=== PATIENT | male | born 1975 | race Caucasian/White ===

== ENCOUNTER 2016-09-13 13:27 | Emergency (ER) | payer MEDICARE, OTHER ==
[2016-09-13 13:34] VITALS: RESP 20
--- NOTE | 2016-09-13 14:13 | ED ---
General Adult HPI - General Chief complaint: Extremity Injury, Upper Stated complaint: Falll/Arm Pain Time Seen by Provider: 09/13/16 13:39 Source: patient, RN notes reviewed Mode of arrival: ambulatory Limitations: no limitations - History of Present Illness Initial comments: This is a 40-year-old male presents today with right arm pain. Patient states he tripped in his bathroom and hit his arm on the bathroom counter today. Patient denies head injury or loss of consciousness or dizziness. Patient states he now has pain to the ulnar aspect of the right forearm and also to the ulnar aspect of the right elbow. Patient denies any numbness/weakness or tingling to the right hand. Patient denies any wrist or hand pain. Patient states he has some mild tingling over the right forearm in the area of increased pain. Patient denies any recent fever, chills, shortness breath, chest pain, abdominal pain, nausea/vomiting/diarrhea, back pain, hematuria, headache, or visual changes, or any other complaints. - Related Data Home Medications Medication Instructions Recorded Confirmed Aspirin 81 mg PO DAILY 10/15/14 09/13/16 Insulin Glargine [Lantus] 120 unit SQ BID 10/15/14 09/13/16 Insulin Lispro [humaLOG] 10 units PO TID 10/15/14 09/13/16 Ziprasidone [Geodon] 60 mg PO DAILY 10/15/14 09/13/16 Zolpidem [Ambien] 10 mg PO HS 10/15/14 09/13/16 metFORMIN HCL [Glucophage] 1,000 mg PO BID 10/15/14 09/13/16 Atorvastatin [Lipitor] 20 mg PO DAILY 12/16/14 09/13/16 Carvedilol Phosphate [Coreg Cr] 20 mg PO DAILY 12/16/14 09/13/16 Furosemide [Lasix] 40 mg PO DAILY 12/16/14 09/13/16 Omeprazole [PriLOSEC] 20 mg PO DAILY 12/16/14 09/13/16 Atorvastatin [Lipitor] 20 mg PO DAILY 09/13/16 09/13/16 Exenatide [Byetta] 5 mcg SQ DAILY 09/13/16 09/13/16 Previous Rx's Medication Instructions Recorded Ibuprofen [Motrin] 600 mg PO Q8HR PRN #30 tab 10/15/14 Cyclobenzaprine [Flexeril] 10 mg PO TID #14 tab 12/16/14 Hydrocodone/Acetaminophen [[place] 1 each PO Q6HR PRN #20 tab 12/16/14 5-325] Ibuprofen [Motrin] 800 mg PO Q6HR PRN #20 tab 12/16/14 Nitroglycerin Sl Tabs [Nitrostat] 0.4 mg SUBLINGUAL Q5M PRN #25 tab 12/30/14 Allergies Allergy/AdvReac Type Severity Reaction Status Date / Time tuberculin, purified protein AdvReac Swelling Verified 09/13/16 13:34 deriva [tuberculin,purif.prot.deriv.] Review of Systems ROS Statement: Those systems with pertinent positive or pertinent negative responses have been documented in the HPI. ROS Other: All systems not noted in ROS Statement are negative. Past Medical History Past Medical History: Chest Pain / Angina, Diabetes Mellitus, GERD/Reflux, Hyperlipidemia, Hypertension, Myocardial Infarction ([place]) Last Myocardial Infarction Date:: 08/2013 History of Any Multi-Drug Resistant Organisms: None Reported Past Surgical History: Cholecystectomy Additional Past Surgical History / Comment(s): clean cardiac cath - approx 10 yrs ago Past Anesthesia/Blood Transfusion Reactions: No Reported Reaction Past Psychological History: Depression, PTSD, Schizophrenia Smoking Status: Current every day smoker Past Alcohol Use History: None Reported Past Drug Use History: Methamphetamine, Opiates - Past Family History Father Additional Family Medical History / Comment(s): adopted - no none hx General Exam - General Exam Comments Initial Comments: General: The patient is awake and alert, in no distress, and does not appear acutely ill. Neck: The neck is supple, there is no tenderness or JVD. Cardiovascular: There is a regular rate and rhythm. No murmur, rub or gallop is appreciated. Respiratory: Lungs are clear to auscultation, respirations are non-labored, breath sounds are equal. No wheezes, stridor, rales, or rhonchi. Musculoskeletal: There is tenderness to palpation over the ulnar aspect of the mid shaft right forearm, there is tenderness over the ulnar aspect of the right elbow. There is no tenderness over the radial aspect of the right forearm or to the right wrist or right hand. Full range of motion, strength 5/5 and Sensation intact. Radial pulses 2+ bilaterally, normal capillary refill at less than 2 seconds. Neurological: A&O x 3. CN II-XII intact, There are no obvious motor or sensory deficits. Coordination appears grossly intact. Speech is normal. Skin: Skin is warm and dry and no rashes or lesions are noted. Psychiatric: Normal mood and affect. Limitations: no limitations Course Vital Signs 09/13/16 13:32 Temperature 97.6 F Pulse Rate 94 Respiratory 20 Rate Blood Pressure 149/108 O2 Sat by Pulse 96 Oximetry Medical Decision Making - Medical Decision Making This is a 40-year-old male presents with right arm pain after hitting his arm on his bathroom counter. On physical exam there is tenderness to palpation over the ulnar aspect of the mid shaft right forearm, there is tenderness over the ulnar aspect of the right elbow. There is no tenderness over the radial aspect of the right forearm or to the right wrist or right hand. Full range of motion, strength 5/5 and Sensation intact. Radial pulses 2+ bilaterally, normal capillary refill at less than 2 seconds. X-rays of the right forearm and right elbow were done and reviewed showing: X- ray elbow right, x-ray forearm right colon right elbow and forearm without acute osseous abnormality seen. Reported by Dr. Schreiber. Discussed rest, ice, elevate and use [id number] Tylenol or Motrin as needed for any pain. Discussed return parameters.If symptoms do not improve in the next 7 days repeat x-rays may be needed to rule out occult fracture.Discussed that patient should follow up with PCP in one to 2 days or return to the [facility] for any worsening symptoms or for any further concerns. Patient and who was also present in the room were receptive to this plan and patient will be discharged home. Disposition Clinical Impression: Right arm pain Disposition: HOME SELF-CARE Condition: Good Instructions: Arm Pain (ED) Additional Instructions: Please rest, ice, elevate and use [id number] Tylenol or Motrin as needed for pain. If symptoms do not improve in the next 7 days repeat x-rays may be needed to rule out occult fracture. Please follow-up with family doctor in the next 2 days of symptoms have not improved. Please return to emergency room if the symptoms increase or worsen or for any other concerns. Referrals: Rowena Christiansen MD [Primary Care Provider] - 1-2 days Time of Disposition: 14:35
--- NOTE | 2016-09-13 14:33 | XR ---
EXAMINATION TYPE: 3 views right elbow. 2 views right forearm. DATE OF EXAM: 09/13/2016 2:11 PM COMPARISON: NONE HISTORY: 40-year-old male with pain after trip and fall. FINDINGS: Right elbow: No acute fracture, subluxation, or dislocation. No significant elbow joint effusion. Right forearm: No acute fracture identified. Wrist articulation appears grossly intact. IMPRESSION: Right elbow and forearm without acute osseous abnormality seen.
[2016-09-13 14:41] VITALS: BP 131/98; PULSE 86; TEMP 97.8
== END 2016-09-13 14:46 | disposition home or self-care (01) ==
LOC: EC 13:27
DX: M79.601 Pain in right arm (principal); E11.9 Type 2 diabetes mellitus without complications; I10 Essential (primary) hypertension; E78.5 Hyperlipidemia, unspecified; I25.2 Old myocardial infarction; K21.9 Gastro-esophageal reflux disease without esophagitis; F17.200 Nicotine dependence, unspecified, uncomplicated; F20.9 Schizophrenia, unspecified; W01.198A Fall on same level from slipping, tripping and stumbling with subsequent striking against other object, initial encounter; Y92.002 Bathroom of unspecified non-institutional (private) residence as the place of occurrence of the external cause; Z79.899 Other long term (current) drug therapy; Z79.4 Long term (current) use of insulin; Z79.84 Long term (current) use of oral hypoglycemic drugs; Z88.8 Allergy status to other drugs, medicaments and biological substances; Z79.82 Long term (current) use of aspirin
CPT/HCPCS: 99283

== ENCOUNTER 2017-10-05 22:02 | Inpatient (IN) | payer MEDICARE, OTHER ==
--- NOTE | 2017-10-05 23:24 | ED ---
Psych HPI - General Chief Complaint: Psychiatric Symptoms Stated Complaint: mental health Time Seen by Provider: 10/05/17 22:28 Source: patient, family Mode of arrival: ambulatory - History of Present Illness Initial Comments: This patient's a 41-year-old man who presents with complaint that he is having worsening of his auditory hallucinations. The patient states that the hallucinations are telling him to hurt people particularly his . He states that this is been getting worse over the past few months. When he discussed this with his care provider he was recommended to come emergency department for evaluation. Patient is not having any suicidal ideation. He states that he is compliant with his medications but they don't seem to be helping much. Complaint: other -: week(s) Associated Psychiatric Symptoms: racing thoughts, auditory hallucinations Quality: getting worse Improves With: none Worsens With: none - Related Data Home Medications Medication Instructions Recorded Confirmed Aspirin 81 mg PO DAILY 10/15/14 10/05/17 Insulin Glargine [Lantus] 120 unit SQ BID 10/15/14 10/05/17 Insulin Lispro [humaLOG] See Protocol PO ACHS 10/15/14 10/05/17 Ziprasidone [Geodon] 60 mg PO DAILY 10/15/14 10/05/17 metFORMIN HCL [Glucophage] 1,000 mg PO BID 10/15/14 10/05/17 Carvedilol Phosphate [Coreg Cr] 20 mg PO DAILY 12/16/14 10/05/17 Furosemide [Lasix] 40 mg PO DAILY 12/16/14 10/05/17 Omeprazole [PriLOSEC] 20 mg PO DAILY 12/16/14 10/05/17 Atorvastatin [Lipitor] 20 mg PO DAILY 09/13/16 10/05/17 Exenatide [Byetta] 5 mcg SQ BID 09/13/16 10/05/17 Gabapentin [Neurontin] 300 mg PO TID 10/05/17 10/05/17 Ibuprofen [Motrin] 800 mg PO TID PRN 10/05/17 10/05/17 Potassium Chloride [Klor-Con 8] 8 meq PO DAILY 10/05/17 10/05/17 Sillenor 6mg 6 mg PO DAILY 10/05/17 10/05/17 Tamsulosin [Flomax] 0.4 mg PO DAILY 10/05/17 10/05/17 Allergies Allergy/AdvReac Type Severity Reaction Status Date / Time tuberculin, purified protein Allergy Swelling Verified 10/05/17 23:15 deriva [tuberculin,purif.prot.deriv.] Review of Systems ROS Statement: Those systems with pertinent positive or pertinent negative responses have been documented in the HPI. ROS Other: All systems not noted in ROS Statement are negative. Constitutional: Denies: fever Eyes: Denies: vision change Respiratory: Denies: cough, dyspnea Cardiovascular: Denies: chest pain, palpitations, edema, syncope Gastrointestinal: Denies: abdominal pain, nausea, vomiting Genitourinary: Denies: dysuria, hematuria Musculoskeletal: Denies: back pain Skin: Denies: rash Neurological: Denies: headache, weakness, numbness Psychiatric: Reports: auditory hallucinations, homicidal thoughts. Denies: depression, suicidal thoughts Past Medical History Past Medical History: Chest Pain / Angina, Diabetes Mellitus, GERD/Reflux, Hyperlipidemia, Hypertension, Myocardial Infarction ([place]) Last Myocardial Infarction Date:: 08/2013 History of Any Multi-Drug Resistant Organisms: None Reported Past Surgical History: Cholecystectomy Additional Past Surgical History / Comment(s): clean cardiac cath - approx 10 yrs ago Past Anesthesia/Blood Transfusion Reactions: No Reported Reaction Past Psychological History: Depression, PTSD, Schizophrenia Smoking Status: Current every day smoker Past Alcohol Use History: None Reported Past Drug Use History: Methamphetamine, Opiates - Past Family History Father Additional Family Medical History / Comment(s): adopted - no none hx General Exam Limitations: no limitations General appearance: alert, in no apparent distress, obese Head exam: Present: atraumatic, normocephalic Eye exam: Present: normal appearance. Absent: scleral icterus, conjunctival injection ENT exam: Present: normal oropharynx Neck exam: Present: normal inspection, full ROM Respiratory exam: Present: normal lung sounds bilaterally. Absent: respiratory distress, wheezes, rales, rhonchi, stridor Cardiovascular Exam: Present: regular rate, normal rhythm, normal heart sounds. Absent: systolic murmur, diastolic murmur, rubs, gallop GI/Abdominal exam: Present: soft. Absent: distended, tenderness, guarding, rebound, mass Extremities exam: Present: normal inspection, normal capillary refill. Absent: pedal edema, calf tenderness Back exam: Present: normal inspection. Absent: CVA tenderness (R), CVA tenderness (L) Neurological exam: Present: alert Psychiatric exam: Present: homicidal ideation. Absent: depressed, anxious, flat affect, manic, suicidal ideation Skin exam: Present: warm, dry, intact, normal color. Absent: rash Course Vital Signs 10/05/17 10/06/17 22:19 03:00 Temperature 99.8 F H Pulse Rate 100 76 Respiratory 20 18 Rate Blood Pressure 148/98 150/96 O2 Sat by Pulse 96 96 Oximetry Medical Decision Making - Lab Data Result diagrams: 10/06/17 01:25 10/06/17 01:25 Lab Results 10/05/17 10/06/17 10/06/17 Range/Units 23:30 00:51 01:25 WBC (3.8-10.6) k/uL RBC (4.30-5.90) m/uL Hgb (13.0-17.5) gm/dL Hct (39.0-53.0) % MCV (80.0-100.0) fL MCH (25.0-35.0) pg MCHC (31.0-37.0) g/dL RDW (11.5-15.5) % Plt Count (150-450) k/uL Neutrophils % % Lymphocytes % % Monocytes % % Eosinophils % % Basophils % % Neutrophils # (1.3-7.7) k/uL Lymphocytes # (1.0-4.8) k/uL Monocytes # (0-1.0) k/uL Eosinophils # (0-0.7) k/uL Basophils # (0-0.2) k/uL Sodium (137-145) mmol/L Potassium (3.5-5.1) mmol/L Chloride (98-107) mmol/L Carbon Dioxide (22-30) mmol/L Anion Gap mmol/L BUN (9-20) mg/dL Creatinine (0.66-1.25) mg/dL Est GFR (MDRD) Af Amer (>60 ml/min/1.73 sqM) Est GFR (MDRD) Non-Af (>60 ml/min/1.73 sqM) Glucose (74-99) mg/dL POC Glucose (mg/dL) 400 H (75-99) mg/dL POC Glu Pediatric Clinical Dietician ID He Juan Calcium (8.4-10.2) mg/dL Urine Opiates Screen Not Detected (NotDetected) Ur Oxycodone Screen Not Detected (NotDetected) Urine Methadone Screen Not Detected (NotDetected) Ur Propoxyphene Screen Not Detected (NotDetected) Ur Barbiturates Screen Not Detected (NotDetected) U Tricyclic Antidepress Not Detected (NotDetected) Ur Phencyclidine Scrn Not Detected (NotDetected) Ur Amphetamines Screen Not Detected (NotDetected) U Methamphetamines Scrn Not Detected (NotDetected) U Benzodiazepines Scrn Not Detected (NotDetected) Urine Cocaine Screen Not Detected (NotDetected) U Marijuana (THC) Screen Not Detected (NotDetected) Acetone, Qual Negative (Negative) 10/06/17 10/06/17 10/06/17 Range/Units 01:25 01:25 03:16 WBC 7.2 (3.8-10.6) k/uL RBC 5.44 (4.30-5.90) m/uL Hgb 15.6 (13.0-17.5) gm/dL Hct 46.0 (39.0-53.0) % MCV 84.7 (80.0-100.0) fL MCH 28.6 (25.0-35.0) pg MCHC 33.8 (31.0-37.0) g/dL RDW 14.3 (11.5-15.5) % Plt Count 220 (150-450) k/uL Neutrophils % 57 % Lymphocytes % 32 % Monocytes % 7 % Eosinophils % 2 % Basophils % 1 % Neutrophils # 4.1 (1.3-7.7) k/uL Lymphocytes # 2.3 (1.0-4.8) k/uL Monocytes # 0.5 (0-1.0) k/uL Eosinophils # 0.2 (0-0.7) k/uL Basophils # 0.0 (0-0.2) k/uL Sodium 135 L (137-145) mmol/L Potassium 4.5 (3.5-5.1) mmol/L Chloride 100 (98-107) mmol/L Carbon Dioxide 22 (22-30) mmol/L Anion Gap 13 mmol/L BUN 16 (9-20) mg/dL Creatinine 0.90 (0.66-1.25) mg/dL Est GFR (MDRD) Af Amer >60 (>60 ml/min/1.73 sqM) Est GFR (MDRD) Non-Af >60 (>60 ml/min/1.73 sqM) Glucose 406 H (74-99) mg/dL POC Glucose (mg/dL) 290 H (75-99) mg/dL POC Glu Pediatric Clinical Dietician ID He Juan Calcium 9.0 (8.4-10.2) mg/dL Urine Opiates Screen (NotDetected) Ur Oxycodone Screen (NotDetected) Urine Methadone Screen (NotDetected) Ur Propoxyphene Screen (NotDetected) Ur Barbiturates Screen (NotDetected) U Tricyclic Antidepress (NotDetected) Ur Phencyclidine Scrn (NotDetected) Ur Amphetamines Screen (NotDetected) U Methamphetamines Scrn (NotDetected) U Benzodiazepines Scrn (NotDetected) Urine Cocaine Screen (NotDetected) U Marijuana (THC) Screen (NotDetected) Acetone, Qual (Negative) Disposition Clinical Impression: Acute psychosis, Uncontrolled diabetes mellitus Disposition: ADMITTED IP TO THIS HOSP Condition: Fair Referrals: Rowena Christiansen MD [Primary Care Provider] - 1-2 days
[2017-10-05 23:54] LABS: Amphetamine Screen,Urine Not Detected (NotDetected); Barbiturate Screen,Urine Not Detected (NotDetected); Benzodiazepines Screen,Urine Not Detected (NotDetected); Cocaine Screen,Urine Not Detected (NotDetected); Methadone Screen, Urine Not Detected (NotDetected); Opiate Screen,Urine Not Detected (NotDetected); Oxycodone Screen, Urine Not Detected (NotDetected); Phencyclidine Screen,Urine Not Detected (NotDetected); Tricyclic Antidepressant,Urine Not Detected (NotDetected); Urn Cannabinoid Scrn Not Detected (NotDetected)
[2017-10-06 00:53] LABS: Glucose,Whole Blood 400 mg/dL (75-99)
[2017-10-06] MEDS ORDERED: INSULIN REGULAR 100 UNIT/ML VIAL SQ STA (01:15)
[2017-10-06] MEDS ORDERED: SODIUM CHLORIDE 0.9% 2,000 ML IV ONE (01:15)
[2017-10-06] MEDS ORDERED: NALOXONE 0.4 MG/ML 1 ML VIAL IV PRN (01:24)
[2017-10-06] MEDS ORDERED: SODIUM CHLORIDE 0.9% 1,000 ML IV SCH (01:30)
[2017-10-06 02:27] LABS: Basophils % (A) 1 %; Eosinophils # (A) 0.2 k/uL (0-0.7); Eosinophils % (A) 2 %; HGB 15.6 gm/dL (13.0-17.5); Lymphocytes # (A) 2.3 k/uL (1.0-4.8); Lymphocytes % (A) 32 %; MCH 28.6 pg (25.0-35.0); MCHC 33.8 g/dL (31.0-37.0); MCV 84.7 fL (80.0-100.0); Mean Platelet Volume 7.1; Monocytes # (A) 0.5 k/uL (0-1.0); Monocytes % (A) 7 %; Neutrophils # (A) 4.1 k/uL (1.3-7.7); Neutrophils % (A) 57 %; Platelet Count 220 k/uL (150-450); RBC 5.44 m/uL (4.30-5.90); RDW 14.3 % (11.5-15.5); WBC 7.2 k/uL (3.8-10.6)
[2017-10-06 02:39] LABS: Anion Gap 13 mmol/L; Blood Urea Nitrogen 16 mg/dL (9-20); Carbon Dioxide 22 mmol/L (22-30); Chloride 100 mmol/L (98-107); Glucose 406 mg/dL (74-99); Potassium 4.5 mmol/L (3.5-5.1); Sodium 135 mmol/L (137-145)
[2017-10-06 03:39] LABS: Glucose,Whole Blood 290 mg/dL (75-99)
[2017-10-06] MEDS ORDERED: IBUPROFEN 800 MG TAB PO PRN (03:46)
[2017-10-06] MEDS ORDERED: ZIPRASIDONE 60 MG CAP PO STA (03:48)
[2017-10-06 06:42] LABS: Glucose,Whole Blood 210 mg/dL (75-99)
[2017-10-06] MEDS ORDERED: INSULIN ASPART 100 UNIT/ML 1 ML 10 ML VIAL SQ SCH (07:30)
[2017-10-06] MEDS ORDERED: metFORMIN 500 MG TAB PO SCH (07:30)
[2017-10-06] MEDS ORDERED: PANTOPRAZOLE 40 MG TABLET PO SCH (07:30)
[2017-10-06] MEDS ORDERED: CARVEDILOL 6.25 MG TAB PO SCH (07:30)
[2017-10-06 08:36] LABS: Glucose,Whole Blood 198 mg/dL (75-99)
[2017-10-06] MEDS ORDERED: GABAPENTIN 300 MG CAP PO SCH (09:00)
[2017-10-06] MEDS ORDERED: ATORVASTATIN 20 MG TAB PO SCH (09:00)
[2017-10-06] MEDS ORDERED: POTASSIUM CHLORIDE ER 10 MEQ TAB.ER.PRT PO SCH (09:00)
[2017-10-06] MEDS ORDERED: ZIPRASIDONE 60 MG CAP PO SCH (09:00)
[2017-10-06] MEDS ORDERED: ASPIRIN 81 MG PO SCH (09:00)
[2017-10-06] MEDS ORDERED: EXENATIDE 5 MCG SQ SCH (09:00)
[2017-10-06] MEDS ORDERED: TAMSULOSIN 0.4 MG CAP.ER.24H PO SCH (09:00)
[2017-10-06] MEDS ORDERED: INSULIN DETEMIR 100 UNIT/ML 10 ML VIAL SQ SCH (09:00)
[2017-10-06 09:30] VITALS: BP 137/74; PULSE 84; RESP 16; TEMP 98.7
== END 2017-10-06 09:00 | disposition still patient (30) | DRG 885 ==
LOC: EC 22:02 → 4MS4W 10-06 01:24
PROVIDERS: ADMIT Hospitalist; ATTEND Hospitalist
DX: F23 Brief psychotic disorder (principal); E11.65 Type 2 diabetes mellitus with hyperglycemia; E78.5 Hyperlipidemia, unspecified; F17.200 Nicotine dependence, unspecified, uncomplicated; I10 Essential (primary) hypertension; I25.2 Old myocardial infarction; K21.9 Gastro-esophageal reflux disease without esophagitis; Z79.82 Long term (current) use of aspirin; F43.10 Post-traumatic stress disorder, unspecified; Z79.84 Long term (current) use of oral hypoglycemic drugs; Z79.899 Other long term (current) drug therapy
CPT/HCPCS: 36415; 80048; 80306; 82009; 82075; 85025; 96360; 96361; 99285

== ENCOUNTER 2017-10-06 09:20 | Inpatient (IN) | payer MEDICARE ==
[2017-10-06] MEDS ORDERED: MAGNESIUM HYDROXIDE 2,400 MG/10 ML CUP PO PRN (10:39)
[2017-10-06] MEDS ORDERED: MAG HYDROX/AL HYDROX/SIMETH 30 ML CUP PO PRN (10:39)
[2017-10-06] MEDS ORDERED: ACETAMINOPHEN TAB 325 MG TAB PO PRN (10:39)
[2017-10-06] MEDS ORDERED: IBUPROFEN 800 MG TAB PO PRN (10:45)
[2017-10-06] MEDS ORDERED: INSULIN ASPART 100 UNIT/ML 1 ML 10 ML VIAL SQ PRN (10:57)
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
[2017-10-06] MEDS: ZIPRASIDONE 60 MG CAP PO SCH ×2 (11:38→20:56)
[2017-10-06 12:37] LABS: Glucose,Whole Blood 300 mg/dL (75-99)
--- NOTE | 2017-10-06 13:25 | P.CONS ---
History of Present Illness - Reason for Consult unControlled blood sugars - History of Present Illness 41-year-old gentleman was admitted secondary to psychiatric issues patient does take his long-acting insulin on regular basis as well as oral hypoglycemic agents but doesn't take his pre-meal insulin regular basis patient here was started on sliding scale for female and the he was started back on his long- acting insulin as well as oral hypoglycemic agents patient blood sugars were highly elevated to 300 and did not have any repeat CBGs available patient. Will get repeat CBGs. We'll also get a basic metabolic profile to make sure patient is not in daycare although patient appears to have type 2 diabetes mellitus. Patient denied any fever chills nausea vomiting lightheadedness polyuria polydipsia. Patient is also on Lasix patient denied any history of congestive heart failure his previous echo cardiac exam showed normal ejection fraction Review of Systems REVIEW OF SYSTEMS: CONSTITUTIONAL: No fever, no malaise, no fatigue. HEENT: No recent visual problems or hearing problems. Denied any sore throat. CARDIOVASCULAR: No chest pain, orthopnea, PND, no palpitations, no syncope. PULMONARY: No shortness of breath, no cough, no hemoptysis. GASTROINTESTINAL: No diarrhea, no nausea, no vomiting, no abdominal pain. Normoactive bowel sounds. NEUROLOGICAL: No headaches, no weakness, no numbness. HEMATOLOGICAL: Denies any bleeding or petechiae. GENITOURINARY: Denies any burning micturition, frequency, or urgency. MUSCULOSKELETAL/RHEUMATOLOGICAL: Denies any joint pain, swelling, or any muscle pain. ENDOCRINE: Denies any polyuria or polydipsia. The rest of the 14-point review of systems is negative. . Past Medical History Past Medical History: Chest Pain / Angina, Diabetes Mellitus, GERD/Reflux, Hyperlipidemia, Hypertension, Myocardial Infarction ([place]) Last Myocardial Infarction Date:: 08/2013 History of Any Multi-Drug Resistant Organisms: None Reported Past Surgical History: Cholecystectomy Additional Past Surgical History / Comment(s): clean cardiac cath - approx 10 yrs ago Past Anesthesia/Blood Transfusion Reactions: No Reported Reaction Past Psychological History: Depression, PTSD, Schizophrenia Smoking Status: Light tobacco smoker Past Alcohol Use History: None Reported Additional Past Alcohol Use History / Comment(s): etoh in the past Past Drug Use History: Methamphetamine, Opiates - Past Family History Father Additional Family Medical History / Comment(s): adopted - no none hx Medications and Allergies Home Medications Medication Instructions Recorded Confirmed Type Aspirin 81 mg PO DAILY 10/15/14 10/06/17 History Insulin Glargine [Lantus] 120 unit SQ BID 10/15/14 10/06/17 History Insulin Lispro [humaLOG] See Protocol PO ACHS 10/15/14 10/06/17 History Ziprasidone [Geodon] 60 mg PO DAILY 10/15/14 10/06/17 History metFORMIN HCL [Glucophage] 1,000 mg PO BID 10/15/14 10/06/17 History Carvedilol Phosphate [Coreg Cr] 20 mg PO DAILY 12/16/14 10/06/17 History Furosemide [Lasix] 40 mg PO DAILY 12/16/14 10/06/17 History Omeprazole [PriLOSEC] 20 mg PO DAILY 12/16/14 10/06/17 History Atorvastatin [Lipitor] 20 mg PO DAILY 09/13/16 10/06/17 History Exenatide [Byetta] 5 mcg SQ BID 09/13/16 10/06/17 History Gabapentin [Neurontin] 300 mg PO TID 10/05/17 10/06/17 History Ibuprofen [Motrin] 800 mg PO TID PRN 10/05/17 10/06/17 History Potassium Chloride [Klor-Con 8] 8 meq PO DAILY 10/05/17 10/06/17 History Sillenor 6mg 6 mg PO DAILY 10/05/17 10/06/17 History Tamsulosin [Flomax] 0.4 mg PO DAILY 10/05/17 10/06/17 History Allergies Allergy/AdvReac Type Severity Reaction Status Date / Time tuberculin, purified protein Allergy Swelling Verified 10/05/17 23:15 deriva [tuberculin,purif.prot.deriv.] Physical Exam Vitals: Vital Signs Temp Pulse Resp BP 10/06/17 10:07 97.0 F L 84 16 146/76 Intake and Output 10/05/17 10/06/17 10/06/17 22:59 06:59 14:59 Other: Weight 126.6 kg Patient Weight 10/07/17 06:59 Weight 126.6 kg PHYSICAL EXAMINATION: GENERAL: The patient is alert and oriented x3, not in any acute distress. obese HEENT: Pupils are round and equally reacting to light. EOMI. No scleral icterus. No conjunctival pallor. Normocephalic, atraumatic. No pharyngeal erythema. No thyromegaly. CARDIOVASCULAR: S1 and S2 present. No murmurs, rubs, or gallops. PULMONARY: Chest is clear to auscultation, no wheezing or crackles. ABDOMEN: Soft, nontender, nondistended, normoactive bowel sounds. No palpable organomegaly. MUSCULOSKELETAL: No joint swelling or deformity. EXTREMITIES: No cyanosis, clubbing, or pedal edema. NEUROLOGICAL: Gross neurological examination did not reveal any focal deficits. SKIN: No rashes Results Labs: Abnormal Lab Results - Last 24 Hours (Table) 10/06/17 Range/Units 12:35 POC Glucose (mg/dL) 300 H (75-99) mg/dL Assessment and Plan Plan: -Hypoglycemia: Patient is diabetic elevated blood sugars are secondary to noncompliance probably no signs or symptoms of sepsis was appreciated. Patient will be resumed on home regimen will up titrate the insulin her decide on pre- meal insulin depending on his blood sugars will obtain also obtain a basic metabolic profile -Hypertension patient's blood pressures are well controlled will resume his home regimen monitor closely. -Gastroesophageal reflux disease -Coronary artery disease -Other psychiatric issues management as per primary service.
[2017-10-06 13:55] LABS: Anion Gap 9 mmol/L; Blood Urea Nitrogen 15 mg/dL (9-20); Calcium 9.2 mg/dL (8.4-10.2); Carbon Dioxide 23 mmol/L (22-30); Chloride 105 mmol/L (98-107); Glucose 325 mg/dL (74-99); Potassium 4.9 mmol/L (3.5-5.1); Sodium 137 mmol/L (137-145)
[2017-10-06 14:24] LABS: Glucose,Whole Blood 352 mg/dL (75-99)
[2017-10-06] MEDS ORDERED: INSULIN ASPART 100 UNIT/ML 1 ML 10 ML VIAL SQ ONE (14:36)
[2017-10-06 14:48] LABS: HCT 44.3 % (39.0-53.0); HGB 15.3 gm/dL (13.0-17.5); MCH 29.1 pg (25.0-35.0); MCHC 34.6 g/dL (31.0-37.0); MCV 84.2 fL (80.0-100.0); Mean Platelet Volume 6.7; Platelet Count 199 k/uL (150-450); Poikilocytosis Slight; RBC 5.27 m/uL (4.30-5.90); RDW 14.5 % (11.5-15.5); WBC 5.5 k/uL (3.8-10.6)
[2017-10-06] MEDS: GABAPENTIN 300 MG CAP PO SCH ×2 (16:50→20:55)
[2017-10-06 17:40] LABS: Glucose,Whole Blood 233 mg/dL (75-99)
[2017-10-06] MEDS: INSULIN ASPART 100 UNIT/ML 1 ML 10 ML VIAL SQ SCH ×2 (17:49→20:52)
[2017-10-06] MEDS: metFORMIN 500 MG TAB PO SCH (18:14)
[2017-10-06] MEDS: POTASSIUM CHLORIDE ER 10 MEQ TAB.ER.PRT PO SCH (18:58)
[2017-10-06] MEDS: LORazepam 1 MG TAB PO PRN (19:50)
[2017-10-06] MEDS: INSULIN DETEMIR 100 UNIT/ML 10 ML VIAL SQ SCH (20:17)
[2017-10-06 20:23] LABS: Glucose,Whole Blood 261 mg/dL (75-99)
[2017-10-06 22:02] LABS: Hemoglobin A1C 9.3 % (4.0-6.0)
[2017-10-07 05:38] LABS: Glucose,Whole Blood 214 mg/dL (75-99)
[2017-10-07] MEDS ORDERED: Exenatide [Byetta] 5 MCG SQ SCH (07:30)
[2017-10-07] MEDS: INSULIN ASPART 100 UNIT/ML 1 ML 10 ML VIAL SQ SCH ×4 (08:05→20:25)
[2017-10-07] MEDS: metFORMIN 500 MG TAB PO SCH ×2 (08:05→17:28)
[2017-10-07] MEDS: GABAPENTIN 300 MG CAP PO SCH ×3 (08:05→20:20)
[2017-10-07] MEDS: ASPIRIN 81 MG PO SCH (08:06)
[2017-10-07] MEDS: ZIPRASIDONE 60 MG CAP PO SCH ×2 (08:06→20:20)
[2017-10-07] MEDS: FUROSEMIDE 40 MG TAB PO SCH (08:06)
[2017-10-07] MEDS: ATORVASTATIN 20 MG TAB PO SCH (08:06)
[2017-10-07] MEDS: TAMSULOSIN 0.4 MG CAP.ER.24H PO SCH (08:06)
[2017-10-07] MEDS: CARVEDILOL 6.25 MG TAB PO SCH ×2 (08:06→17:27)
[2017-10-07] MEDS: PANTOPRAZOLE 40 MG TABLET PO SCH (08:07)
[2017-10-07] MEDS: POTASSIUM CHLORIDE ER 10 MEQ TAB.ER.PRT PO SCH (08:08)
[2017-10-07] MEDS: INSULIN DETEMIR 100 UNIT/ML 10 ML VIAL SQ SCH ×2 (08:58→20:21)
[2017-10-07] MEDS ORDERED: ZIPRASIDONE 60 MG CAP PO SCH (09:00)
--- NOTE | 2017-10-07 09:40 | P.PN ---
Progress Note - Text Interval history: The patient is found in his room he follows me to an interview room. He reports he slept last night but still feels tired as he had built up a sleep deficit prior to the hospitalization. He indicates experiencing auditory and visual hallucinations still. Auditory hallucinations direct harm to himself and others but he states he does not want to act on those commands. He finds the visual hallucinations more disturbing. He reports attempting some groups. We reviewed most recent lab work. Hemoglobin A1c is quite elevated as well as his triglycerides HDL is low. He has not met with his primary care physician in quite some time. We discussed his psychotropic medication specifically the Geodon. We discussed titrating dose further if needed we also discussed alternatives to Geodon. Mental status exam: The patient is a tall overweight male he has a disheveled appearance he is dressed in his own clothing and wearing a bathrobe over top area and he appears tired but he does cooperate with the session he is not lethargic. He indicates a depressed mood because of the distress the hallucinations cause. He indicates ongoing command hallucinations directing self-harm and harm to others. He feels he is in control of his behavior however and will not harm himself or others. Insight and judgment limited. He maintains a very bland affect throughout the session with little expression. He demonstrates no verbal or physical aggressiveness he demonstrates no abnormal involuntary movements. Plan: The patient will continue on the Geodon 60 mg twice daily we may consider titrating to 80 mg twice daily. He is encouraged to participate in the milieu we will monitor him for safety. He requires ongoing psychiatric hospitalization due to his current symptoms of psychosis.
[2017-10-07 12:36] LABS: Glucose,Whole Blood 249 mg/dL (75-99)
[2017-10-07 14:24] VITALS: BMI 35.8
[2017-10-07 17:31] LABS: Glucose,Whole Blood 224 mg/dL (75-99)
[2017-10-07] MEDS ORDERED: LOPERAMIDE 2 MG CAP PO PRN (19:41)
[2017-10-07 20:31] LABS: Glucose,Whole Blood 240 mg/dL (75-99)
[2017-10-07] MEDS: LORazepam 1 MG TAB PO PRN (21:05)
[2017-10-07] MEDS ORDERED: LORazepam 1 MG TAB PO STA (23:30)
[2017-10-08] MEDS ORDERED: ZIPRASIDONE 20 MG VIAL IM STA (00:06)
[2017-10-08] MEDS ORDERED: ZIPRASIDONE 20 MG VIAL IM ONE (00:08)
[2017-10-08] MEDS ORDERED: WATER FOR INJECTION, STERILE 10 ML IV ONE (00:09)
[2017-10-08] MEDS ORDERED: INSULIN ASPART 100 UNIT/ML 1 ML 10 ML VIAL SQ SCH (07:30)
[2017-10-08] MEDS: INSULIN ASPART 100 UNIT/ML 1 ML 10 ML VIAL SQ SCH ×7 (08:13→20:37)
[2017-10-08] MEDS: CARVEDILOL 6.25 MG TAB PO SCH ×2 (08:14→17:53)
[2017-10-08] MEDS: GABAPENTIN 300 MG CAP PO SCH ×3 (08:16→21:01)
[2017-10-08] MEDS: POTASSIUM CHLORIDE ER 10 MEQ TAB.ER.PRT PO SCH (08:17)
[2017-10-08] MEDS: PANTOPRAZOLE 40 MG TABLET PO SCH (08:17)
[2017-10-08] MEDS: FUROSEMIDE 40 MG TAB PO SCH (08:17)
[2017-10-08] MEDS: TAMSULOSIN 0.4 MG CAP.ER.24H PO SCH (08:17)
[2017-10-08] MEDS: ZIPRASIDONE 60 MG CAP PO SCH (08:17)
[2017-10-08] MEDS: metFORMIN 500 MG TAB PO SCH ×2 (08:17→17:59)
[2017-10-08] MEDS: ASPIRIN 81 MG PO SCH (08:17)
[2017-10-08] MEDS: INSULIN DETEMIR 100 UNIT/ML 10 ML VIAL SQ SCH ×2 (08:20→20:40)
[2017-10-08] MEDS: ATORVASTATIN 20 MG TAB PO SCH (08:20)
[2017-10-08 08:30] LABS: Glucose,Whole Blood 199 mg/dL (75-99)
--- NOTE | 2017-10-08 08:55 | P.PN ---
Progress Note - Text Interval history: The patient is found in his room he follows me to an interview room. He reports little improvement so far in terms of his psychotic symptoms. He continues to experience auditory and visual hallucinations that are disturbing and overwhelming. He reports needing an injection of Geodon on top of the oral dose last evening. He did not attend morning groups yesterday but attended some of the afternoon ones. He reports having some difficulty sleeping. He remembers being treated with Remeron in addition to Geodon in the past and that seemed effective we discussed that as an option. Mental status exam: The patient is an overweight male he has a disheveled appearance she is dressed in hospital gowns. Eye contact is intermittent. Speech is spontaneous fluent nonpressured. He endorses a dysphoric mood. He continues to endorse auditory and visual hallucinations directing self-harm and harm to others. He again states he does not wish to harm anyone however. Affect is blunted. He demonstrates no verbal or physical aggressiveness during the session. He demonstrates no abnormal involuntary movements. Insight and judgment limited. He remains oriented to person place and date. Plan: The patient will continue on his current medications we will titrate the Geodon to 80 mg twice daily with food Remeron will be started 15 mg at bedtime. He is also requesting Nicorette gum as needed. Vital signs reviewed blood sugars reviewed. We discussed the need for him to monitor his blood sugar and gain better control of his diabetes. He has asked for some education regarding his diabetes while here. He continues to require inpatient psychiatric hospitalization due to the acute nature of his psychosis and the dysfunction it is causing.
[2017-10-08] MEDS: NICOTINE POLACRILEX 2 MG GUM BUCCAL PRN ×2 (12:11→21:58)
[2017-10-08 12:56] LABS: Glucose,Whole Blood 300 mg/dL (75-99)
[2017-10-08 17:47] LABS: Glucose,Whole Blood 305 mg/dL (75-99)
[2017-10-08 20:07] LABS: Glucose,Whole Blood 325 mg/dL (75-99)
[2017-10-08] MEDS: MIRTAZAPINE 15 MG TAB PO SCH (21:01)
[2017-10-08] MEDS: ZIPRASIDONE 80 MG CAP PO SCH (21:01)
[2017-10-09 06:31] LABS: Glucose,Whole Blood 163 mg/dL (75-99)
[2017-10-09] MEDS: CARVEDILOL 6.25 MG TAB PO SCH ×2 (07:58→17:31)
[2017-10-09] MEDS: TAMSULOSIN 0.4 MG CAP.ER.24H PO SCH (08:00)
[2017-10-09] MEDS: metFORMIN 500 MG TAB PO SCH ×2 (08:00→17:32)
[2017-10-09] MEDS: GABAPENTIN 300 MG CAP PO SCH ×3 (08:00→21:27)
[2017-10-09] MEDS: POTASSIUM CHLORIDE ER 10 MEQ TAB.ER.PRT PO SCH (08:00)
[2017-10-09] MEDS: PANTOPRAZOLE 40 MG TABLET PO SCH (08:00)
[2017-10-09] MEDS: ATORVASTATIN 20 MG TAB PO SCH (08:00)
[2017-10-09] MEDS: FUROSEMIDE 40 MG TAB PO SCH (08:00)
[2017-10-09] MEDS: ZIPRASIDONE 80 MG CAP PO SCH ×2 (08:01→21:27)
[2017-10-09] MEDS: INSULIN ASPART 100 UNIT/ML 1 ML 10 ML VIAL SQ SCH ×8 (08:01→21:29)
[2017-10-09] MEDS: INSULIN DETEMIR 100 UNIT/ML 10 ML VIAL SQ SCH ×2 (08:04→20:26)
--- NOTE | 2017-10-09 09:38 | P.PN ---
Progress Note - Text Interval history: The patient is found in the hallway he follows me to an interview room. He is glad report there is some improvement of his symptoms. He continues to experience auditory and visual hallucinations that are disturbing and directing self-harm but he feels they are less intense. Sleep last night was improved although he did stay in bed for half the day yesterday. He expects if he stays up more today he'll sleep better tonight. Appetite stable. He did meet with the cosmetology educator yesterday and is scheduled with an motor vehicle parts interpreter later this month. We discussed the importance of him managing his diabetes as well as his psychiatric symptoms. He had questions regarding the Geodon and Remeron we addressed those during the session. He is reporting no side effects from either medication. Mental status exam: The patient is an overweight male who presents with adequate hygiene grooming. He reports his mood is better today in that there is some reduction of the auditory and visual hallucinations. He states they're still present saying the same thing but less intense. He describes visual hallucinations still as seeing disfigured people. The hallucinations directing him to harm himself or others but he states he has no desire intent or plan of acting on those directions. He is hoping that the hallucinations will resolve. He still has some hopelessness thinking. He demonstrates no verbal or physical aggressiveness. He demonstrates no abnormal involuntary movements. He remains oriented to person place and date. Plan: The patient will continue on his current medications. We will monitor him for safety. Vital signs reviewed. He requires continued psychiatric hospitalization until we get further resolution
[2017-10-09 12:19] LABS: Glucose,Whole Blood 276 mg/dL (75-99)
[2017-10-09 17:34] LABS: Glucose,Whole Blood 288 mg/dL (75-99)
[2017-10-09 19:51] LABS: Glucose,Whole Blood 304 mg/dL (75-99)
[2017-10-09] MEDS: NICOTINE POLACRILEX 2 MG GUM BUCCAL PRN (21:27)
[2017-10-09] MEDS: MIRTAZAPINE 15 MG TAB PO SCH (21:27)
[2017-10-09] MEDS: LORazepam 1 MG TAB PO PRN (23:50)
[2017-10-10 06:31] LABS: Glucose,Whole Blood 228 mg/dL (75-99)
[2017-10-10] MEDS: INSULIN ASPART 100 UNIT/ML 1 ML 10 ML VIAL SQ SCH ×9 (07:52→20:23)
[2017-10-10] MEDS: PANTOPRAZOLE 40 MG TABLET PO SCH (07:58)
[2017-10-10] MEDS: metFORMIN 500 MG TAB PO SCH ×2 (07:58→17:10)
[2017-10-10] MEDS: CARVEDILOL 6.25 MG TAB PO SCH ×2 (07:58→16:47)
[2017-10-10] MEDS: GABAPENTIN 300 MG CAP PO SCH ×3 (08:00→21:07)
[2017-10-10] MEDS: ATORVASTATIN 20 MG TAB PO SCH (08:00)
[2017-10-10] MEDS: ASPIRIN 81 MG PO SCH (08:00)
[2017-10-10] MEDS: FUROSEMIDE 40 MG TAB PO SCH (08:00)
[2017-10-10] MEDS: POTASSIUM CHLORIDE ER 10 MEQ TAB.ER.PRT PO SCH (08:00)
[2017-10-10] MEDS: ZIPRASIDONE 80 MG CAP PO SCH ×2 (08:01→21:07)
[2017-10-10] MEDS: TAMSULOSIN 0.4 MG CAP.ER.24H PO SCH (08:01)
[2017-10-10] MEDS: INSULIN DETEMIR 100 UNIT/ML 10 ML VIAL SQ SCH ×2 (08:02→20:25)
[2017-10-10 12:03] LABS: Glucose,Whole Blood 196 mg/dL (75-99)
--- NOTE | 2017-10-10 12:03 | P.PN ---
Progress Note - Text interval history: The patient is found ingroup he follows me to an interview room. He reports that his hallucinations are improving in the seem less intense. He is most bothered with a feeling of fatigue during the day. He does describe using melatonin and valerian root at home we discussed we could initiate melatonin. He has been eating. His blood sugars remain elevated. He reports no thoughts of wanting to harm himself. He has only participated in a few groups so far. Mental status exam: The patient is an overweight male he is dressed in hospital attire. Hygiene is adequate grooming is improved. Eye contact is intermittent. He reports no acute suicidal or homicidal thoughts as he feels safe in the hospital. He does continue to experience auditory and visual hallucinations however he reports the intensity of those hallucinations is decreasing. There is no verbal or physical aggressiveness. He demonstrates no abnormal involuntary movements. He remains oriented to person place and date. He does not appear hypomanic or manic. Plan: The patient will continue on his current medications we will add melatonin 5 mg at bedtime. He is reporting slow improvement of symptoms. He requires continued hospitalization until symptoms of psychosis are more fully resolved.
[2017-10-10] MEDS ORDERED: INSULIN ASPART 100 UNIT/ML 1 ML 10 ML VIAL SQ SCH (12:38)
[2017-10-10 17:26] LABS: Glucose,Whole Blood 296 mg/dL (75-99)
[2017-10-10 20:19] LABS: Glucose,Whole Blood 217 mg/dL (75-99)
[2017-10-10] MEDS: MIRTAZAPINE 15 MG TAB PO SCH (21:07)
[2017-10-10] MEDS: MELATONIN 5 MG TABLET PO SCH (21:07)
[2017-10-11 06:43] LABS: Glucose,Whole Blood 113 mg/dL (75-99)
[2017-10-11] MEDS: INSULIN ASPART 100 UNIT/ML 1 ML 10 ML VIAL SQ SCH ×8 (07:50→20:14)
[2017-10-11] MEDS: CARVEDILOL 6.25 MG TAB PO SCH ×2 (07:55→17:06)
[2017-10-11] MEDS: PANTOPRAZOLE 40 MG TABLET PO SCH (07:56)
[2017-10-11] MEDS: metFORMIN 500 MG TAB PO SCH ×2 (07:56→17:06)
[2017-10-11] MEDS: ASPIRIN 81 MG PO SCH (08:43)
[2017-10-11] MEDS: FUROSEMIDE 40 MG TAB PO SCH (08:43)
[2017-10-11] MEDS: ATORVASTATIN 20 MG TAB PO SCH (08:43)
[2017-10-11] MEDS: ZIPRASIDONE 80 MG CAP PO SCH ×2 (08:44→20:56)
[2017-10-11] MEDS: GABAPENTIN 300 MG CAP PO SCH ×3 (08:44→20:56)
[2017-10-11] MEDS: TAMSULOSIN 0.4 MG CAP.ER.24H PO SCH (08:44)
[2017-10-11] MEDS: POTASSIUM CHLORIDE ER 10 MEQ TAB.ER.PRT PO SCH (08:44)
[2017-10-11] MEDS: INSULIN DETEMIR 100 UNIT/ML 10 ML VIAL SQ SCH ×2 (08:50→20:55)
[2017-10-11 09:06] LABS: Glucose,Whole Blood 261 mg/dL (75-99)
[2017-10-11 10:33] LABS: Glucose,Whole Blood 319 mg/dL (75-99)
--- NOTE | 2017-10-11 11:10 | P.PN ---
Progress Note - Text Interval history: The patient is found in the hallway he follows me to an interview room. He reports his mood is good today. He continues to experience auditory and visual hallucinations but he feels that they are no longer frightening. They are much less intense and are no longer commanding self-harm or harm to others. He discusses his concern regarding his sleep. He slept well last night but has been inconsistent. We reviewed his sleep hygiene techniques we reviewed his current medical status. Certainly his fluctuating blood sugars could impact all areas of his function. He is advised to begin exercising more regularly and he absolutely needs to work with an manager country. Mental status exam: The patient is an overweight male he seated calmly he's pleasant and cooperative. He reports his mood is good his affect is congruent and appears euthymic. He is reporting no suicidal or homicidal ideation intent or plan. He is reporting no command auditory or visual hallucinations he is endorsing no specific delusions. He demonstrates no abnormal involuntary movements. He demonstrates no verbal or physical aggressiveness. He is oriented to person place and date. Plan: We will continue his medications as written we will monitor him for safety. He may be appropriate for discharge as soon as tomorrow if he continues to report clinical improvement and stability. Vital signs reviewed.
[2017-10-11 12:39] LABS: Glucose,Whole Blood 260 mg/dL (75-99)
[2017-10-11] MEDS ORDERED: INSULIN ASPART 100 UNIT/ML 1 ML 10 ML VIAL SQ SCH (15:45)
[2017-10-11 16:24] VITALS: RESP 20
[2017-10-11 17:08] LABS: Glucose,Whole Blood 157 mg/dL (75-99)
--- NOTE | 2017-10-11 17:12 | PN ---
PROGRESS NOTE DATE OF SERVICE: 10/11/2017 This 41-year-old gentleman who was admitted for psychiatric evaluation had an episode of elevated blood sugars. No chest pain. No palpitations. No fever. The patient patient's blood sugar has been fluctuating at this time. It is elevated more than 390 and 260. Apparently the patient is taking 30 units t.i.d. PAST MEDICAL HISTORY: Reviewed. PHYSICAL EXAM: Patient is alert, oriented x3. Pulse is 112, blood pressure 157/90, respiration 20, temperature 97.2, pulse ox normal. HEENT: Conjunctivae normal. NECK: No jugular venous distention. CARDIOVASCULAR: S1, S2. RESPIRATORY: Breath sounds diminished in the bases. No rhonchi. ABDOMEN: Soft, nontender. LEGS: No edema. NERVOUS SYSTEM: No focal deficits. LABS: At this time shows Accu-Cheks 319, 260. ASSESSMENT: 1. Diabetes mellitus type 2 uncontrolled. 2. Hypertension. 3. Gastroesophageal reflux disease. 4. History of coronary artery disease. 5. Psychiatric issues. RECOMMENDATIONS AND DISCUSSION: I recommend to continue current management, continue symptomatic treatment. I recommend increase the NovoLog to 30 units a.c. t.i.d. Accu-Cheks a.c. and at bedtime and continue to monitor. Further recommendations to follow. MMODL / IJN: [id number] /
[2017-10-11 20:07] LABS: Glucose,Whole Blood 234 mg/dL (75-99)
[2017-10-11] MEDS: MIRTAZAPINE 15 MG TAB PO SCH (21:44)
[2017-10-11] MEDS: MELATONIN 5 MG TABLET PO SCH (21:44)
[2017-10-11 21:46] LABS: Glucose,Whole Blood 223 mg/dL (75-99)
[2017-10-12 05:05] LABS: Glucose,Whole Blood 161 mg/dL (75-99)
[2017-10-12 06:39] LABS: Glucose,Whole Blood 135 mg/dL (75-99)
[2017-10-12 07:08] VITALS: BP 144/102; PULSE 77; TEMP 97.6
[2017-10-12] MEDS: INSULIN ASPART 100 UNIT/ML 1 ML 10 ML VIAL SQ SCH ×2 (07:55→07:56)
[2017-10-12] MEDS: CARVEDILOL 6.25 MG TAB PO SCH (07:57)
[2017-10-12] MEDS: metFORMIN 500 MG TAB PO SCH (07:58)
[2017-10-12] MEDS: PANTOPRAZOLE 40 MG TABLET PO SCH (07:58)
[2017-10-12] MEDS: INSULIN DETEMIR 100 UNIT/ML 10 ML VIAL SQ SCH (08:33)
[2017-10-12] MEDS: ASPIRIN 81 MG PO SCH (08:36)
[2017-10-12] MEDS: GABAPENTIN 300 MG CAP PO SCH (08:36)
[2017-10-12] MEDS: ZIPRASIDONE 80 MG CAP PO SCH (08:36)
[2017-10-12] MEDS: ATORVASTATIN 20 MG TAB PO SCH (08:37)
[2017-10-12] MEDS: FUROSEMIDE 40 MG TAB PO SCH (08:37)
[2017-10-12] MEDS: POTASSIUM CHLORIDE ER 10 MEQ TAB.ER.PRT PO SCH (08:37)
[2017-10-12] MEDS: TAMSULOSIN 0.4 MG CAP.ER.24H PO SCH (08:37)
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
== END 2017-10-12 10:36 | disposition home or self-care (01) | DRG 885 ==
LOC: 3MHU 09:20
PROVIDERS: ADMIT Psychiatry & Neurology Psychiatry; ATTEND Psychiatry & Neurology Psychiatry
DX: F29 Unspecified psychosis not due to a substance or known physiological condition (principal); R45.851 Suicidal ideations; E11.65 Type 2 diabetes mellitus with hyperglycemia; F20.9 Schizophrenia, unspecified; E66.3 Overweight; F19.21 Other psychoactive substance dependence, in remission; E78.5 Hyperlipidemia, unspecified; F17.200 Nicotine dependence, unspecified, uncomplicated; F43.10 Post-traumatic stress disorder, unspecified; I10 Essential (primary) hypertension; I25.10 Atherosclerotic heart disease of native coronary artery without angina pectoris; I25.2 Old myocardial infarction; K21.9 Gastro-esophageal reflux disease without esophagitis; G47.9 Sleep disorder, unspecified; Z79.899 Other long term (current) drug therapy; Z79.82 Long term (current) use of aspirin; Z79.4 Long term (current) use of insulin; Z88.7 Allergy status to serum and vaccine; Z68.35 Body mass index [BMI] 35.0-35.9, adult
CPT/HCPCS: 80048; 80061; 83036; 84443; 85027

== ENCOUNTER 2021-06-24 11:06 | Emergency (ER) | payer MEDICARE, OTHER ==
[2021-06-24 13:17] VITALS: BP 121/84; PULSE 88; RESP 18; TEMP 97.9
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
[2021-06-25 01:03] LABS: Hepatitis B Surface AB- Quant 3.5 mIU/mL; Hepatitis B Surface Antibody Nonreactive (Nonreactive); Hepatitis C IgG Antibody Nonreactive (Nonreactive)
[2021-06-25 06:55] LABS: Hepatitis B Surface Antigen Nonreactive (Nonreactive)
[2021-06-26 15:37] LABS: HIV 2 AB Non-Reactive (Non-Reactive); HIV AB P24 Non-Reactive (Non-Reactive); HIV P24 AG Non-Reactive (Non-Reactive)
== END 2021-06-24 14:15 | disposition home or self-care (01) ==
LOC: EC 11:06
DX: Z77.21 Contact with and (suspected) exposure to potentially hazardous body fluids (principal); E11.9 Type 2 diabetes mellitus without complications; K21.9 Gastro-esophageal reflux disease without esophagitis; E78.5 Hyperlipidemia, unspecified; I10 Essential (primary) hypertension; I25.2 Old myocardial infarction; F32.9 Major depressive disorder, single episode, unspecified; F43.12 Post-traumatic stress disorder, chronic; F17.200 Nicotine dependence, unspecified, uncomplicated; Z79.82 Long term (current) use of aspirin; Z79.4 Long term (current) use of insulin; Z90.49 Acquired absence of other specified parts of digestive tract; Z79.899 Other long term (current) drug therapy
CPT/HCPCS: 36415; 86706; 86803; 87340; 87390; 99282

== ENCOUNTER 2021-11-29 19:18 | Inpatient (IN) | payer BC, MEDICARE ==
--- NOTE | 2021-11-30 00:50 | ED ---
Psych HPI - General Chief Complaint: Psychiatric Symptoms Stated Complaint: Mental Health Time Seen by Provider: 11/30/21 00:08 Source: patient, family Mode of arrival: ambulatory - History of Present Illness Initial Comments: Patient is a 46-year-old man with history of schizophrenia. He states that his symptoms seem to be getting worse. He is having worsening of depressed mood. He states he is auditory hallucinations are telling him to harm himself. He has been considering suicide. MD Complaint: suicidal ideation, feels depressed -: days(s) Associated Psychiatric Symptoms: depression, suicidal ideation, auditory hallucinations History of same: Yes Quality: getting worse Improves With: none Worsens With: none - Related Data Home Medications Medication Instructions Recorded Confirmed Aspirin 81 mg PO DAILY 10/15/14 10/06/17 Insulin Glargine [Lantus Vial] 120 unit SQ BID 10/15/14 10/06/17 Insulin Lispro [humaLOG] See Protocol PO ACHS 10/15/14 10/06/17 metFORMIN HCL [Glucophage] 1,000 mg PO BID 10/15/14 10/06/17 Carvedilol Phosphate [Coreg Cr] 20 mg PO DAILY 12/16/14 10/06/17 Furosemide [Lasix] 40 mg PO DAILY 12/16/14 10/06/17 Omeprazole [PriLOSEC] 20 mg PO DAILY 12/16/14 10/06/17 Atorvastatin [Lipitor] 20 mg PO DAILY 09/13/16 10/06/17 Exenatide [Byetta] 5 mcg SQ BID 09/13/16 10/06/17 Gabapentin [Neurontin] 300 mg PO TID 10/05/17 10/06/17 Ibuprofen [Motrin] 800 mg PO TID PRN 10/05/17 10/06/17 Potassium Chloride [Klor-Con 8 ER] 8 meq PO DAILY 10/05/17 10/06/17 Tamsulosin [Flomax] 0.4 mg PO DAILY 10/05/17 10/06/17 Previous Rx's Medication Instructions Recorded Melatonin 5 mg PO HS #30 tablet 10/12/17 Mirtazapine [Remeron] 15 mg PO HS #30 tab 10/12/17 Nicotine Gum (Polacrilex) 2 mg BUCCAL Q2HR PRN #30 gum 10/12/17 [Nicorette] Ziprasidone [Geodon] 80 mg PO BID #60 cap 10/12/17 Allergies Allergy/AdvReac Type Severity Reaction Status Date / Time tuberculin, purified protein Allergy Swelling Verified 11/29/21 19:42 deriva [tuberculin,purif.prot.deriv.] Review of Systems ROS Statement: Those systems with pertinent positive or pertinent negative responses have been documented in the HPI. ROS Other: All systems not noted in ROS Statement are negative. Constitutional: Denies: fever Respiratory: Denies: cough, dyspnea Cardiovascular: Denies: chest pain, palpitations Gastrointestinal: Denies: abdominal pain, vomiting, diarrhea Genitourinary: Denies: dysuria Musculoskeletal: Denies: back pain Skin: Denies: rash Neurological: Denies: headache, weakness Psychiatric: Reports: depression, auditory hallucinations, suicidal thoughts. Denies: visual hallucinations, homicidal thoughts Past Medical History Past Medical History: Chest Pain / Angina, Diabetes Mellitus, GERD/Reflux, Hyperlipidemia, Hypertension, Myocardial Infarction ([place]) Last Myocardial Infarction Date:: 08/2013 History of Any Multi-Drug Resistant Organisms: None Reported Past Surgical History: Cholecystectomy Additional Past Surgical History / Comment(s): clean cardiac cath - approx 10 yrs ago Past Anesthesia/Blood Transfusion Reactions: No Reported Reaction Past Psychological History: Depression, PTSD, Schizophrenia Smoking Status: Current every day smoker Past Alcohol Use History: None Reported Past Drug Use History: None Reported - Past Family History Father Additional Family Medical History / Comment(s): adopted - no none hx General Exam Limitations: no limitations General appearance: alert, in no apparent distress Head exam: Present: atraumatic, normocephalic Eye exam: Present: normal appearance ENT exam: Present: normal oropharynx Neck exam: Present: normal inspection Respiratory exam: Present: normal lung sounds bilaterally. Absent: respiratory distress, wheezes, rales, rhonchi, stridor Cardiovascular Exam: Present: regular rate, normal rhythm, normal heart sounds. Absent: systolic murmur, diastolic murmur, rubs, gallop GI/Abdominal exam: Present: soft. Absent: distended, tenderness, guarding, rebound, rigid Extremities exam: Present: normal inspection, normal capillary refill Neurological exam: Present: alert Psychiatric exam: Present: depressed, suicidal ideation. Absent: agitated, anxious, flat affect, manic, homicidal ideation Skin exam: Present: warm, dry, intact, normal color. Absent: rash Course Vital Signs 11/29/21 19:38 Temperature 97.9 F Pulse Rate 116 H Respiratory 18 Rate Blood Pressure 126/87 O2 Sat by Pulse 97 Oximetry Medical Decision Making - Lab Data Lab Results 11/30/21 11/30/21 Range/Units 03:24 04:45 POC Glucose (mg/dL) 138 H (75-99) mg/dL POC Glu Tooth Inspector ID Dada Robles Coronavirus (PCR) Not Detected (Not Detectd) Disposition Clinical Impression: Acute psychosis Disposition: ADMITTED IP TO THIS HOSP Condition: Fair Is patient prescribed a controlled substance at d/c from ED?: No
[2021-11-30 03:26] LABS: Glucose,Whole Blood 138 mg/dL (75-99)
[2021-11-30] MEDS ORDERED: MAGNESIUM HYDROXIDE 2,400 MG/10 ML CUP PO PRN (06:12)
[2021-11-30] MEDS ORDERED: HALOPERIDOL LACTATE 5 MG/ML 1 ML VIAL IM PRN (06:12)
[2021-11-30] MEDS ORDERED: MAG HYDROX/AL HYDROX/SIMETH 30 ML CUP PO PRN (06:12)
[2021-11-30] MEDS ORDERED: ACETAMINOPHEN TAB 325 MG TAB PO PRN (06:12)
[2021-11-30] MEDS ORDERED: LORazepam 2 MG/ML INJ IM PRN (06:24)
[2021-11-30] MEDS ORDERED: haloperidoL 5 MG TAB PO PRN (06:25)
[2021-11-30] MEDS ORDERED: NICOTINE GUM (POLACRILEX) 2 MG GUM BUCCAL PRN (06:26)
[2021-11-30] MEDS ORDERED: IBUPROFEN 800 MG TAB PO PRN (06:26)
[2021-11-30] MEDS ORDERED: carvediloL 6.25 MG TAB PO SCH (07:30)
[2021-11-30 07:55] LABS: Glucose,Whole Blood 251 mg/dL (75-99)
[2021-11-30] MEDS: INSULIN ASPART (NovoLOG) 100 UNIT/ML VIAL SQ SCH ×4 (08:12→20:17)
[2021-11-30] MEDS ORDERED: methocarbamoL 750 MG TAB PO PRN (08:44)
[2021-11-30] MEDS ORDERED: ASPIRIN 81 MG PO SCH (09:00)
[2021-11-30] MEDS ORDERED: NON FORMULARY DRUG (Insulin Glargine 100 UNIT/ML Vial) SQ SCH (09:00)
[2021-11-30] MEDS ORDERED: EXENATIDE 5 MCG/0.02 ML SQ SCH (09:00)
[2021-11-30] MEDS ORDERED: ZIPRASIDONE 80 MG CAP PO SCH (09:00)
[2021-11-30] MEDS: INSULIN DETEMIR (LEVEMIR) 100 UNIT/ML SYR SQ SCH (09:20)
[2021-11-30] MEDS: metFORMIN 500 MG TAB PO SCH ×2 (09:21→20:18)
[2021-11-30] MEDS: GABAPENTIN 300 MG CAP PO SCH ×3 (09:21→20:19)
[2021-11-30] MEDS: carvediloL 12.5 MG TAB PO SCH ×2 (09:21→17:48)
[2021-11-30] MEDS: risperiDONE 2 MG TAB PO SCH ×2 (09:21→20:19)
[2021-11-30] MEDS: TAMSULOSIN 0.4 MG CAP.ER.24H PO SCH (09:21)
[2021-11-30] MEDS: ATORVASTATIN 20 MG TAB PO SCH (09:21)
[2021-11-30] MEDS: POTASSIUM CHLORIDE ER 10 MEQ TAB.ER.PRT PO SCH (09:21)
[2021-11-30] MEDS: lisinopriL 5 MG TAB PO SCH (09:21)
[2021-11-30] MEDS: PANTOPRAZOLE 40 MG TABLET PO SCH (09:21)
[2021-11-30] MEDS: FUROSEMIDE 40 MG TAB PO SCH (09:22)
[2021-11-30] MEDS: MELATONIN 3 MG TABLET PO SCH ×2 (09:22→20:18)
[2021-11-30] MEDS: FARXIGA 10 MG PO SCH (09:22)
[2021-11-30] MEDS: buPROPion XL 150 MG TAB.ER.24H PO SCH (10:21)
[2021-11-30] MEDS: LORazepam 1 MG TAB PO PRN (11:38)
[2021-11-30 11:56] LABS: Basophils % (A) 1 %; Eosinophils # (A) 0.1 k/uL (0-0.7); Eosinophils % (A) 2 %; HCT 46.1 % (39.0-53.0); HGB 15.4 gm/dL (13.0-17.5); Lymphocytes # (A) 1.6 k/uL (1.0-4.8); Lymphocytes % (A) 24 %; MCH 30.3 pg (25.0-35.0); MCHC 33.3 g/dL (31.0-37.0); Mean Platelet Volume 6.9; Monocytes # (A) 0.4 k/uL (0-1.0); Monocytes % (A) 7 %; Neutrophils # (A) 4.2 k/uL (1.3-7.7); Neutrophils % (A) 65 %; Platelet Count 194 k/uL (150-450); RBC 5.07 m/uL (4.30-5.90); RDW 14.1 % (11.5-15.5); WBC 6.5 k/uL (3.8-10.6)
[2021-11-30 12:08] LABS: ALT 40 U/L (4-49); AST 37 U/L (17-59); African American GFR (CKD) >90 (>60 ml/min/1.73 sqM); Albumin 4.3 g/dL (3.5-5.0); Alkaline Phosphatase 43 U/L (38-126); Anion Gap 13 mmol/L; Blood Urea Nitrogen 14 mg/dL (9-20); Calcium 9.3 mg/dL (8.4-10.2); Carbon Dioxide 23 mmol/L (22-30); Chloride 101 mmol/L (98-107); Glucose 226 mg/dL (74-99); Non-African American GFR(CKD) >90 (>60 ml/min/1.73 sqM); Potassium 4.4 mmol/L (3.5-5.1); Sodium 137 mmol/L (137-145); Total Bilirubin 0.8 mg/dL (0.2-1.3); Total Protein 7.3 g/dL (6.3-8.2)
[2021-11-30 12:53] LABS: Glucose,Whole Blood 167 mg/dL (75-99)
--- NOTE | 2021-11-30 16:20 | P.CONS ---
History of Present Illness - Reason for Consult Medical clearance - History of Present Illness 46-year-old male with schizophrenia admitted for acute psychosis patient is on multiple medications patient has diabetes mellitus for which patient is on multiple medications does have history of hypertension. Patient was having auditory hallucinations. REVIEW OF SYSTEMS: CONSTITUTIONAL: No fever, no malaise, no fatigue. HEENT: No recent visual problems or hearing problems. Denied any sore throat. CARDIOVASCULAR: No chest pain, orthopnea, PND, no palpitations, no syncope. PULMONARY: No shortness of breath, no cough, no hemoptysis. GASTROINTESTINAL: No diarrhea, no nausea, no vomiting, no abdominal pain. NEUROLOGICAL: No headaches, no weakness, no numbness. HEMATOLOGICAL: Denies any bleeding or petechiae. GENITOURINARY: Denies any burning micturition, frequency, or urgency. MUSCULOSKELETAL/RHEUMATOLOGICAL: Denies any joint pain, swelling, or any muscle pain. ENDOCRINE: Denies any polyuria or polydipsia. The rest of the 14-point review of systems is negative. PHYSICAL EXAMINATION: GENERAL: The patient is alert and oriented x3, not in any acute distress. Well developed, well nourished. HEENT: Pupils are round and equally reacting to light. EOMI. No scleral icterus. No conjunctival pallor. Normocephalic, atraumatic. No pharyngeal erythema. No thyromegaly. CARDIOVASCULAR: S1 and S2 present. No murmurs, rubs, or gallops. PULMONARY: Chest is clear to auscultation, no wheezing or crackles. ABDOMEN: Soft, nontender, nondistended, normoactive bowel sounds. No palpable organomegaly. MUSCULOSKELETAL: No joint swelling or deformity. EXTREMITIES: No cyanosis, clubbing, or pedal edema. NEUROLOGICAL: Gross neurological examination did not reveal any focal deficits. SKIN: No rashes. Assessment and plan -Type 2 diabetes mellitus patient is on very high-dose of insulin along with the other oral hypoglycemic agents which will be resumed monitor blood sugars -Hypertension resume lisinopril -Gastroesophageal reflux disease -Hyperlipidemia -Coronary artery disease -Benign prostatic hypertrophy For above-mentioned chronic medical problems which are fairly stable at this time patient was resumed on appropriate home medications patient will be monitored. - acute psychosis and schizophrenia management as per primary service Past Medical History Past Medical History: Chest Pain / Angina, Diabetes Mellitus, GERD/Reflux, Hyperlipidemia, Hypertension, Myocardial Infarction ([place]) Last Myocardial Infarction Date:: 08/2013 History of Any Multi-Drug Resistant Organisms: None Reported Past Surgical History: Cholecystectomy Additional Past Surgical History / Comment(s): clean cardiac cath - approx 10 yrs ago Past Anesthesia/Blood Transfusion Reactions: No Reported Reaction Past Psychological History: Depression, PTSD, Schizophrenia Smoking Status: Current every day smoker Past Alcohol Use History: None Reported Past Drug Use History: None Reported - Past Family History Father Additional Family Medical History / Comment(s): adopted - no none hx Medications and Allergies Home Medications Medication Instructions Recorded Confirmed Type Aspirin 81 mg PO DAILY 10/15/14 10/06/17 History Insulin Glargine [Lantus Vial] 120 unit SQ BID 10/15/14 10/06/17 History Insulin Lispro [humaLOG] See Protocol PO ACHS 10/15/14 10/06/17 History metFORMIN HCL [Glucophage] 1,000 mg PO BID 10/15/14 10/06/17 History Carvedilol Phosphate [Coreg Cr] 20 mg PO DAILY 12/16/14 10/06/17 History Furosemide [Lasix] 40 mg PO DAILY 12/16/14 10/06/17 History Omeprazole [PriLOSEC] 20 mg PO DAILY 12/16/14 10/06/17 History Atorvastatin [Lipitor] 20 mg PO DAILY 09/13/16 10/06/17 History Exenatide [Byetta] 5 mcg SQ BID 09/13/16 10/06/17 History Gabapentin [Neurontin] 300 mg PO TID 10/05/17 10/06/17 History Ibuprofen [Motrin] 800 mg PO TID PRN 10/05/17 10/06/17 History Potassium Chloride [Klor-Con 8 ER] 8 meq PO DAILY 10/05/17 10/06/17 History Tamsulosin [Flomax] 0.4 mg PO DAILY 10/05/17 10/06/17 History Melatonin 5 mg PO HS #30 tablet 10/12/17 Rx Mirtazapine [Remeron] 15 mg PO HS #30 tab 10/12/17 Rx Nicotine Gum (Polacrilex) 2 mg BUCCAL Q2HR PRN #30 gum 10/12/17 Rx [Nicorette] Ziprasidone [Geodon] 80 mg PO BID #60 cap 10/12/17 Rx Allergies Allergy/AdvReac Type Severity Reaction Status Date / Time tuberculin, purified protein Allergy Swelling Verified 11/29/21 19:42 deriva [tuberculin,purif.prot.deriv.] Physical Exam Vitals: Vital Signs Temp Pulse Pulse Resp BP BP Pulse Ox 11/30/21 09:32 20 119/91 11/30/21 06:21 97.0 F L 84 18 160/106 96 11/29/21 19:38 97.9 F 116 H 18 126/87 97 Results CBC & Chem 7: 11/30/21 10:47 11/30/21 10:47 Labs: Abnormal Lab Results - Last 24 Hours (Table) 11/30/21 11/30/21 11/30/21 Range/Units 03:24 07:53 10:47 Glucose 226 H (74-99) mg/dL POC Glucose (mg/dL) 138 H 251 H (75-99) mg/dL 11/30/21 Range/Units 12:52 Glucose (74-99) mg/dL POC Glucose (mg/dL) 167 H (75-99) mg/dL
[2021-11-30 17:47] LABS: Glucose,Whole Blood 180 mg/dL (75-99)
[2021-11-30 18:04] LABS: Chol/HDL Ratio 4.24 Ratio; LDL Cholesterol,Calculated 28.4 mg/dL (0.0-131.0)
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
[2021-11-30 20:16] LABS: Glucose,Whole Blood 186 mg/dL (75-99)
[2021-11-30] MEDS: MIRTAZAPINE 15 MG TAB PO SCH (20:19)
[2021-11-30] MEDS: PRAZOSIN 1 MG CAP PO SCH (20:19)
[2021-11-30] MEDS ORDERED: MELATONIN 5 MG TABLET PO SCH (21:00)
[2021-12-01] MEDS ORDERED: INSULIN DETEMIR (LEVEMIR) 100 UNIT/ML SYR SQ SCH (07:00)
[2021-12-01 07:43] LABS: Glucose,Whole Blood 160 mg/dL (75-99)
[2021-12-01] MEDS: INSULIN ASPART (NovoLOG) 100 UNIT/ML VIAL SQ SCH ×4 (07:55→19:59)
[2021-12-01] MEDS: INSULIN DETEMIR (LEVEMIR) 100 UNIT/ML SYR SQ SCH (07:55)
[2021-12-01] MEDS: FUROSEMIDE 40 MG TAB PO SCH (07:57)
[2021-12-01] MEDS: TAMSULOSIN 0.4 MG CAP.ER.24H PO SCH (07:57)
[2021-12-01] MEDS: buPROPion XL 150 MG TAB.ER.24H PO SCH (07:57)
[2021-12-01] MEDS: PANTOPRAZOLE 40 MG TABLET PO SCH (07:57)
[2021-12-01] MEDS: lisinopriL 5 MG TAB PO SCH (07:57)
[2021-12-01] MEDS: metFORMIN 500 MG TAB PO SCH ×2 (07:57→20:29)
[2021-12-01] MEDS: POTASSIUM CHLORIDE ER 10 MEQ TAB.ER.PRT PO SCH (07:58)
[2021-12-01] MEDS: ATORVASTATIN 20 MG TAB PO SCH (07:58)
[2021-12-01] MEDS: carvediloL 12.5 MG TAB PO SCH ×2 (07:58→16:29)
[2021-12-01] MEDS: risperiDONE 2 MG TAB PO SCH (07:58)
[2021-12-01] MEDS: GABAPENTIN 300 MG CAP PO SCH ×3 (07:59→20:30)
[2021-12-01] MEDS ORDERED: OZEMPIC SQ SCH (09:00)
[2021-12-01] MEDS: LORazepam 1 MG TAB PO PRN (12:35)
[2021-12-01 12:58] LABS: Glucose,Whole Blood 162 mg/dL (75-99)
[2021-12-01] MEDS: FARXIGA 10 MG PO SCH (12:59)
--- NOTE | 2021-12-01 17:11 | P.PN ---
Progress Note - Text Progress Note Date: 12/01/21 46-year-old male with history of schizophrenia and PTSD was admitted due to worsening symptoms of psychosis, depression and suicidal ideations. Patient continues to report thoughts of harm t self and others. He is paranoid delusional of others talking about him. He says he gets angry and frustrated easily. He says he has to learn to develop good coping skills. He MENTAL STATUS EXAM: General Appearance: Patient appears to be stated age is alert, directable.. He has tattos all over his upper limbs. Behavior: Patient is irritable Speech: Patient's speech is fluent , normal rate and tone Mood/Affect: sad , affect is congruent and constricted. Suicidality/Homicidality: Patient reports suicidal and homicidal ideations with a plan to overdose on insulin. Perceptions Patient reports hearing voices talking to him. He reports seeing people he has hurt when he was in his twenties. Though content/process: Reports paranoid delusions of others trying to plot against him and talking about him. Memory and concentration: AOX3, grossly intact for the purposes of this session. Judgment and insight: limited IMPRESSIONS: Scizophrenia PTSD PLAN: -Patient is admitted under voluntary status to [facility] for stabilization of psychiatric symptoms and safety. Patient signed adult voluntary form and medication consent and is placed in patient's chart. -Medications : Continue Wellbutrin 450mg po daily for depression, remeron for insomnia, prazosin for night pradhan. Will increase his night time dose of riperidone to 3mg po qhs for psychosis, -Patient was informed of the risks, benefits and side effects of the medication and patient verbally consented to taking the medications. Patient signed med consent form and was placed in chart. -SW on board for discharge planning
[2021-12-01 17:43] LABS: Glucose,Whole Blood 207 mg/dL (75-99)
[2021-12-01 19:58] LABS: Glucose,Whole Blood 313 mg/dL (75-99)
[2021-12-01] MEDS: PRAZOSIN 1 MG CAP PO SCH (20:29)
[2021-12-01] MEDS: MIRTAZAPINE 15 MG TAB PO SCH (20:29)
[2021-12-01] MEDS: MELATONIN 3 MG TABLET PO SCH (20:29)
[2021-12-01] MEDS ORDERED: OZEMPIC 1 MG SQ SCH (20:30)
[2021-12-01] MEDS ORDERED: INSULIN ASPART (NovoLOG) 100 UNIT/ML VIAL SQ ONE (20:58)
[2021-12-01] MEDS ORDERED: risperiDONE 1 MG TAB PO SCH (21:00)
[2021-12-02 07:54] LABS: Glucose,Whole Blood 144 mg/dL (75-99)
[2021-12-02] MEDS: INSULIN DETEMIR (LEVEMIR) 100 UNIT/ML SYR SQ SCH (08:19)
[2021-12-02] MEDS: INSULIN ASPART (NovoLOG) 100 UNIT/ML VIAL SQ SCH ×4 (08:21→20:45)
[2021-12-02] MEDS: ATORVASTATIN 20 MG TAB PO SCH (08:22)
[2021-12-02] MEDS: PANTOPRAZOLE 40 MG TABLET PO SCH (08:22)
[2021-12-02] MEDS: carvediloL 12.5 MG TAB PO SCH ×2 (08:22→17:47)
[2021-12-02] MEDS: TAMSULOSIN 0.4 MG CAP.ER.24H PO SCH (08:22)
[2021-12-02] MEDS: buPROPion XL 150 MG TAB.ER.24H PO SCH (08:22)
[2021-12-02] MEDS: POTASSIUM CHLORIDE ER 10 MEQ TAB.ER.PRT PO SCH (08:22)
[2021-12-02] MEDS: metFORMIN 500 MG TAB PO SCH ×2 (08:22→20:46)
[2021-12-02] MEDS ORDERED: risperiDONE 2 MG TAB PO SCH (09:00)
[2021-12-02] MEDS: FARXIGA 10 MG PO SCH (10:37)
[2021-12-02] MEDS: lisinopriL 5 MG TAB PO SCH (10:38)
[2021-12-02] MEDS: GABAPENTIN 300 MG CAP PO SCH ×3 (10:38→20:46)
[2021-12-02] MEDS: FUROSEMIDE 40 MG TAB PO SCH (10:38)
[2021-12-02 12:47] LABS: Glucose,Whole Blood 201 mg/dL (75-99)
--- NOTE | 2021-12-02 13:37 | P.PN ---
Progress Note - Text Progress Note Date: 12/02/21 Interval History: Patient was seen attending group and was directable and agreeable to speak with telegraphic typewriter repairer in the office. Patient reports that he is feeling "not so good." The patient states that he continues to experience these auditory hallucinations and visual hallucinations of people that he has wronged in the past. The patient reports that he has been feeling increasingly anxious and feels like he is unable to control these hallucinations. He reports that they have been negatively affecting his mood and that he has been reaching his limit in regards to how much as he can handle. He does express that he has suicidal ideation. The patient is adherent with his medications and is not reporting any significant side effects at this time. He does report that he was experiencing sexual dysfunction as a side effect of his medications and that is why he is currently on Wellbutrin. Mental Status Exam: General Appearance: Patient appears to be stated age is alert, directable, and cooperative. The patient has numerous tattoos on his bilateral upper extremity is. He is wearing glasses. Behavior: Patient is calmly seated without any agitated behavior. Speech: Patient's speech is fluent and nonpressured. Spontaneous, with monotone but normal rate. Mood/Affect: Mood is "almost at my limit." Affect is blunted. Suicidality/Homicidality: Patient reports suicidal ideation however denies any homicidal ideation, intention, and/or plan. Perceptions: Patient endorses both auditory and visual hallucinations. Though content/process: Patient endorses some paranoia however no other delusional thought content is endorsed. Memory and concentration: AOX3, grossly intact for the purposes of this session Judgment and insight: Improving mildly Vital Signs Temp 98.2 F 12/02/21 07:04 Pulse 107 H 12/02/21 08:24 Resp 16 12/02/21 07:04 BP 134/82 12/02/21 08:24 Pulse Ox 97 12/02/21 07:04 Intake & Output 12/01/21 12/02/21 12/02/21 18:59 06:59 18:59 Weight 112.3 kg Laboratory Results - Last 24 Hours 12/01/21 12/01/21 12/02/21 17:31 19:56 07:52 POC Glucose (mg/dL) 207 H 313 H 144 H POC Glu Design Analyst ID Roger Roper [place] Wilkie, Racheal 12/02/21 12:44 POC Glucose (mg/dL) 201 H POC Glu Design Analyst ID Can Mei Assessment Schizophrenia Posttraumatic stress disorder Nicotine dependence Plan: -Patient continues to meet criteria for inpatient psychiatric admission for symptom stabilization and safety. Patient has signed adult voluntary form and medication consent and was placed in patient's chart. -Medications: Decrease Wellbutrin to 300 mg by mouth daily with plans to taper medication due to likely exacerbating his psychotic symptoms. Continue Remeron 15 mg by mouth at bedtime for insomnia/depression Continue melatonin 3 mg daily at bedtime for insomnia Increase Risperdal to 3 mg by mouth twice a day for acute psychosis Continue gabapentin 300 mg by mouth 3 times a day for off label for anxiety as well as for neuropathic pain -When necessary Ativan for agitation/aggression. -NRT -Nicorette gum -SW on board for discharge planning. Encouraged the patient to participate in milieu.
[2021-12-02 17:44] LABS: Glucose,Whole Blood 171 mg/dL (75-99)
[2021-12-02 20:46] LABS: Glucose,Whole Blood 262 mg/dL (75-99)
[2021-12-02] MEDS: MELATONIN 3 MG TABLET PO SCH (20:46)
[2021-12-02] MEDS: MIRTAZAPINE 15 MG TAB PO SCH (20:46)
[2021-12-02] MEDS: PRAZOSIN 1 MG CAP PO SCH (20:46)
[2021-12-02] MEDS: risperiDONE 1 MG TAB PO SCH (20:47)
[2021-12-03 07:49] LABS: Glucose,Whole Blood 132 mg/dL (75-99)
[2021-12-03] MEDS: carvediloL 12.5 MG TAB PO SCH ×2 (08:15→18:12)
[2021-12-03] MEDS: INSULIN DETEMIR (LEVEMIR) 100 UNIT/ML SYR SQ SCH (08:15)
[2021-12-03] MEDS: INSULIN ASPART (NovoLOG) 100 UNIT/ML VIAL SQ SCH ×4 (08:17→20:36)
[2021-12-03] MEDS: PANTOPRAZOLE 40 MG TABLET PO SCH (08:17)
[2021-12-03] MEDS: lisinopriL 5 MG TAB PO SCH (08:18)
[2021-12-03] MEDS: ATORVASTATIN 20 MG TAB PO SCH (08:18)
[2021-12-03] MEDS: GABAPENTIN 300 MG CAP PO SCH ×3 (08:18→20:38)
[2021-12-03] MEDS: FUROSEMIDE 40 MG TAB PO SCH (08:18)
[2021-12-03] MEDS: metFORMIN 500 MG TAB PO SCH ×2 (08:19→20:37)
[2021-12-03] MEDS: risperiDONE 1 MG TAB PO SCH ×2 (08:20→20:37)
[2021-12-03] MEDS: POTASSIUM CHLORIDE ER 10 MEQ TAB.ER.PRT PO SCH (08:20)
[2021-12-03] MEDS: TAMSULOSIN 0.4 MG CAP.ER.24H PO SCH (08:20)
[2021-12-03] MEDS ORDERED: buPROPion XL 300 MG TAB.ER.24H PO SCH (09:00)
[2021-12-03] MEDS: FARXIGA 10 MG PO SCH (09:24)
[2021-12-03] MEDS: LORazepam 1 MG TAB PO PRN (11:27)
--- NOTE | 2021-12-03 11:36 | P.PN ---
Progress Note - Text Progress Note Date: 12/03/21 Interval History: Patient was seen attending group and was directable and agreeable to speak with science writer in the office. Patient reports that he is feeling "about the same as yesterday." He rates his auditory and visual hallucinations to be 10/10 in intensity. He reports the visual hallucinations speak to him. He denies any command-type hallucinations. He expresses feelings of guilt. He reports suicidal ideation but denies any homicidal ideation. He reports no side effects of his medications. He reports no issues regarding sleep or appetite. Mental Status Exam: General Appearance: Patient appears to be stated age is alert, directable, and cooperative. The patient has numerous tattoos on his bilateral upper extremity is. He is wearing glasses. Has his watch. Behavior: Patient is calmly seated without any agitated behavior. Speech: Patient's speech is fluent and nonpressured. Spontaneous, with monotone but normal rate. Mood/Affect: Mood is "about the same as yesterday" Affect is blunted. Suicidality/Homicidality: Patient reports suicidal ideation however denies any homicidal ideation, intention, and/or plan. Perceptions: Patient endorses both auditory and visual hallucinations. Though content/process: No delusional thought content is endorsed. Memory and concentration: AOX3, grossly intact for the purposes of this session Judgment and insight: Improving mildly Vital Signs Temp 97.8 F 12/03/21 07:20 Pulse 99 12/03/21 08:22 Resp 16 12/02/21 07:04 BP 127/92 12/03/21 08:22 Pulse Ox 97 12/03/21 07:20 Laboratory Results - Last 24 Hours 12/02/21 12/02/21 12/02/21 12:44 17:42 20:44 POC Glucose (mg/dL) 201 H 171 H 262 H POC Glu Word Processing Specialist ID Can Mei Audrey Shivers, [place] 12/03/21 07:48 POC Glucose (mg/dL) 132 H POC Glu Word Processing Specialist ID Yen Gifford Assessment Schizophrenia Posttraumatic stress disorder Nicotine dependence Plan: -Patient continues to meet criteria for inpatient psychiatric admission for symptom stabilization and safety. Patient has signed adult voluntary form and medication consent and was placed in patient's chart. -Medications: Decrease Wellbutrin to 150 mg by mouth daily with plans to taper medication due to likely exacerbating his psychotic symptoms. Continue Remeron 15 mg by mouth at bedtime for insomnia/depression Continue melatonin 3 mg daily at bedtime for insomnia Continue Risperdal 3 mg by mouth twice a day for acute psychosis Continue gabapentin 300 mg by mouth 3 times a day for off label for anxiety as well as for neuropathic pain Start Lamictal 25 mg at bedtime for augmentation of antipsychotic. -When necessary Ativan for agitation/aggression. -NRT -Nicorette gum -SW on board for discharge planning. Encouraged the patient to participate in milieu.
[2021-12-03 12:30] LABS: Glucose,Whole Blood 184 mg/dL (75-99)
[2021-12-03 17:31] LABS: Glucose,Whole Blood 152 mg/dL (75-99)
[2021-12-03 20:06] LABS: Glucose,Whole Blood 146 mg/dL (75-99)
[2021-12-03] MEDS: PRAZOSIN 1 MG CAP PO SCH (20:37)
[2021-12-03] MEDS: MIRTAZAPINE 15 MG TAB PO SCH (20:37)
[2021-12-03] MEDS: MELATONIN 3 MG TABLET PO SCH (20:37)
[2021-12-03] MEDS ORDERED: lamoTRIgine 25 MG TAB PO SCH (21:00)
[2021-12-03] MEDS: PREVALITE PO PRN (21:08)
[2021-12-04 07:43] LABS: Glucose,Whole Blood 165 mg/dL (75-99)
[2021-12-04] MEDS: ATORVASTATIN 20 MG TAB PO SCH (07:59)
[2021-12-04] MEDS: carvediloL 12.5 MG TAB PO SCH ×2 (07:59→17:52)
[2021-12-04] MEDS: TAMSULOSIN 0.4 MG CAP.ER.24H PO SCH (07:59)
[2021-12-04] MEDS: PANTOPRAZOLE 40 MG TABLET PO SCH (07:59)
[2021-12-04] MEDS: risperiDONE 1 MG TAB PO SCH (07:59)
[2021-12-04] MEDS: metFORMIN 500 MG TAB PO SCH ×2 (07:59→20:35)
[2021-12-04] MEDS: lisinopriL 5 MG TAB PO SCH (08:00)
[2021-12-04] MEDS: FUROSEMIDE 40 MG TAB PO SCH (08:00)
[2021-12-04] MEDS: FARXIGA 10 MG PO SCH (08:00)
[2021-12-04] MEDS: POTASSIUM CHLORIDE ER 10 MEQ TAB.ER.PRT PO SCH (08:01)
[2021-12-04] MEDS: GABAPENTIN 300 MG CAP PO SCH ×3 (08:01→20:34)
[2021-12-04] MEDS: INSULIN DETEMIR (LEVEMIR) 100 UNIT/ML SYR SQ SCH (08:14)
[2021-12-04] MEDS: INSULIN ASPART (NovoLOG) 100 UNIT/ML VIAL SQ SCH ×4 (08:15→20:17)
[2021-12-04] MEDS ORDERED: buPROPion XL 150 MG TAB.ER.24H PO SCH (09:00)
--- NOTE | 2021-12-04 11:22 | P.PN ---
Progress Note - Text Progress Note Date: 12/04/21 Interval History: Patient was seen attending group and was directable and agreeable to speak with comic book writer in his room. The patient reports that he has been feeling more withdrawn and more depressed. He states that his suicidal ideation continues to be present and he continues to experience ongoing visual and auditory hallucinations of people he has wronged in the past. He does state that their intensity has decreased to 9 out of 10 in severity with 10 being very severe. The patient is otherwise reporting that he is feeling more anxious and wishes to isolate himself and not attend as many groups today. The patient is not reporting any side effects of his medications. He is denying issues regarding his appetite or sleep. Mental Status Exam: General Appearance: Patient appears to be stated age is alert, directable, and cooperative. The patient has numerous tattoos on his bilateral upper extremity is. He is wearing glasses. Has his watch. Behavior: Patient is calmly seated without any agitated behavior. Speech: Patient's speech is fluent and nonpressured. Spontaneous, with monotone but normal rate. Mood/Affect: Mood is "not really feeling good today." Affect is blunted and withdrawn. Suicidality/Homicidality: Patient reports suicidal ideation however denies any homicidal ideation, intention, and/or plan. Perceptions: Patient endorses both auditory and visual hallucinations. Though content/process: No delusional thought content is endorsed. Memory and concentration: AOX3, grossly intact for the purposes of this session Judgment and insight: Improving mildly Vital Signs Temp 98 F 12/04/21 06:46 Pulse 105 H 12/04/21 07:58 Resp 16 12/04/21 06:46 BP 120/85 12/04/21 07:58 Pulse Ox 97 12/03/21 07:20 Laboratory Results - Last 24 Hours 12/03/21 12/03/21 12/03/21 12:28 17:29 20:05 POC Glucose (mg/dL) 184 H 152 H 146 H POC Glu Traffic Engineering Technician ID Colleen Allen Garrett Dillon, [place] 12/04/21 07:38 POC Glucose (mg/dL) 165 H POC Glu Traffic Engineering Technician ID Roz Villarreal Schizophrenia Posttraumatic stress disorder Nicotine dependence Plan: -Patient continues to meet criteria for inpatient psychiatric admission for symptom stabilization and safety. Patient has signed adult voluntary form and medication consent and was placed in patient's chart. -Medications: Discontinue Wellbutrin. Increase remeron to 30 mg by mouth at bedtime for insomnia/depression Continue melatonin 3 mg daily at bedtime for insomnia Increase Risperdal to 4 mg by mouth twice a day for acute psychosis Continue gabapentin 300 mg by mouth 3 times a day for off label for anxiety as well as for neuropathic pain Increase Lamictal to 50 mg at bedtime for augmentation of antipsychotic. -When necessary Ativan for agitation/aggression. -NRT -Nicorette gum -SW on board for discharge planning. Encouraged the patient to participate in milieu.
[2021-12-04 12:37] LABS: Glucose,Whole Blood 177 mg/dL (75-99)
[2021-12-04 17:37] LABS: Glucose,Whole Blood 163 mg/dL (75-99)
[2021-12-04 20:18] LABS: Glucose,Whole Blood 150 mg/dL (75-99)
[2021-12-04] MEDS: MIRTAZAPINE 15 MG TAB PO SCH (20:34)
[2021-12-04] MEDS: PRAZOSIN 1 MG CAP PO SCH (20:35)
[2021-12-04] MEDS: risperiDONE 2 MG TAB PO SCH (20:35)
[2021-12-04] MEDS: lamoTRIgine 25 MG TAB PO SCH (20:35)
[2021-12-04] MEDS: MELATONIN 3 MG TABLET PO SCH (20:36)
[2021-12-04] MEDS: PREVALITE PO PRN (20:37)
[2021-12-05 07:08] VITALS: RESP 16; TEMP 97.4
[2021-12-05 07:49] LABS: Glucose,Whole Blood 138 mg/dL (75-99)
[2021-12-05] MEDS: INSULIN ASPART (NovoLOG) 100 UNIT/ML VIAL SQ SCH ×4 (08:11→20:39)
[2021-12-05] MEDS: INSULIN DETEMIR (LEVEMIR) 100 UNIT/ML SYR SQ SCH (08:11)
[2021-12-05] MEDS: FARXIGA 10 MG PO SCH (08:12)
[2021-12-05] MEDS: PANTOPRAZOLE 40 MG TABLET PO SCH (08:13)
[2021-12-05] MEDS: ATORVASTATIN 20 MG TAB PO SCH (08:13)
[2021-12-05] MEDS: risperiDONE 2 MG TAB PO SCH ×2 (08:13→20:33)
[2021-12-05] MEDS: FUROSEMIDE 40 MG TAB PO SCH (08:13)
[2021-12-05] MEDS: carvediloL 12.5 MG TAB PO SCH ×2 (08:13→17:45)
[2021-12-05] MEDS: TAMSULOSIN 0.4 MG CAP.ER.24H PO SCH (08:13)
[2021-12-05] MEDS: metFORMIN 500 MG TAB PO SCH ×2 (08:13→20:34)
[2021-12-05] MEDS: lisinopriL 5 MG TAB PO SCH (08:13)
[2021-12-05] MEDS: POTASSIUM CHLORIDE ER 10 MEQ TAB.ER.PRT PO SCH (08:14)
[2021-12-05] MEDS: GABAPENTIN 300 MG CAP PO SCH ×3 (08:14→21:38)
--- NOTE | 2021-12-05 12:07 | P.DS ---
Providers Date of admission: 11/30/21 06:10 Expected date of discharge: 12/05/21 Attending physician: Vinnie Fu MD Consults: 11/30/21 06:12 Consult Physician Routine Consulting Provider: Sarabjit Abdalla Consult Reason/Comments: H&P for mental admission Do you want consulting provider notified?: Yes Primary care physician: Rowena Christiansen - Discharge Diagnosis(es) (1) Schizophrenia Current Visit: Yes Status: Acute Priority: High (2) PTSD (post-traumatic stress disorder) Current Visit: Yes Status: Chronic Priority: Medium (3) Nicotine dependence Current Visit: Yes Status: Chronic Priority: Medium Hospital Course: Interval History: Patient was seen wandering the hallways and was agreeable to speak with story writer in the office. Currently, the patient reports that he is feeling better today. He sees is depression and anxiety have decreased. He is currently not reporting any suicidal or homicidal ideation, intention, and/or plan. He continues to report that auditory and visual loose patient's continued to be present however have decrease in he rates them 7 out of 10 in severity with 10 being very severe. The patient expresses a desire for discharge. He reports that he would like to go back to his own bed. He is otherwise adherent with his medications and is not reporting any significant side effects at this time. Mental Status Exam: General Appearance: Patient appears to be stated age is alert, directable, and cooperative. The patient has numerous tattoos on his bilateral upper extremity is. He is wearing glasses. Has his watch. Behavior: Patient is calmly seated without any agitated behavior. Speech: Patient's speech is fluent and nonpressured. Spontaneous, with monotone but normal rate. Mood/Affect: Mood is "feeling better today" Affect is constricted however increased range compared to yesterday. Suicidality/Homicidality: Patient reports suicidal ideation however denies any homicidal ideation, intention, and/or plan. Perceptions: Patient endorses both auditory and visual hallucinations. Though content/process: No delusional thought content is endorsed. Memory and concentration: AOX3, grossly intact for the purposes of this session Judgment and insight: Improving mildly Vital Signs Temp 97.4 F L 12/05/21 06:50 Pulse 95 12/05/21 08:15 Resp 16 12/05/21 06:50 BP 126/79 12/05/21 08:15 Pulse Ox 97 12/03/21 07:20 Laboratory Results - Last 24 Hours 12/04/21 12/04/21 12/04/21 12:35 17:34 20:16 POC Glucose (mg/dL) 177 H 163 H 150 H POC Glu Hospice Care Transitions Coordinator ID Yen Gifford Samantha Fazenbaker, Rowena 12/05/21 07:47 POC Glucose (mg/dL) 138 H POC Glu Hospice Care Transitions Coordinator ID Roz Villarreal Assessment Schizophrenia Posttraumatic stress disorder Nicotine dependence Plan: -Patient continues to meet criteria for inpatient psychiatric admission for symptom stabilization and safety. Patient has signed adult voluntary form and medication consent and was placed in patient's chart. Anticipated discharge for tomorrow. -Medications: Continue remeron 30 mg by mouth at bedtime for insomnia/depression Continue melatonin 3 mg daily at bedtime for insomnia Continue Risperdal to 4 mg by mouth twice a day for acute psychosis Continue gabapentin 300 mg by mouth 3 times a day for off label for anxiety as well as for neuropathic pain Continue Lamictal to 50 mg at bedtime for augmentation of antipsychotic. -When necessary Ativan for agitation/aggression. -NRT -Nicorette gum -SW on board for discharge planning. Encouraged the patient to participate in milieu. Patient Condition at Discharge: Stable Plan - Discharge Summary New Discharge Prescriptions: No Action Insulin Glargine [Lantus Vial] 120 unit SQ BID metFORMIN HCL [Glucophage] 1,000 mg PO BID Insulin Lispro [humaLOG] See Protocol PO ACHS Aspirin 81 mg PO DAILY Furosemide [Lasix] 40 mg PO DAILY Carvedilol Phosphate [Coreg Cr] 20 mg PO DAILY Omeprazole [PriLOSEC] 20 mg PO DAILY Atorvastatin [Lipitor] 20 mg PO DAILY Exenatide [Byetta] 5 mcg SQ BID Ibuprofen [Motrin] 800 mg PO TID PRN PRN Reason: Pain Potassium Chloride [Klor-Con 8 ER] 8 meq PO DAILY Gabapentin [Neurontin] 300 mg PO TID Tamsulosin [Flomax] 0.4 mg PO DAILY Melatonin 5 mg PO HS #30 tablet Mirtazapine [Remeron] 15 mg PO HS #30 tab Nicotine Gum (Polacrilex) [Nicorette] 2 mg BUCCAL Q2HR PRN #30 gum PRN Reason: Nicotine Cravings Ziprasidone [Geodon] 80 mg PO BID #60 cap Discharge Medication List Aspirin 81 mg PO DAILY 10/15/14 [History] Insulin Glargine [Lantus Vial] 120 unit SQ BID 10/15/14 [History] Insulin Lispro [humaLOG] See Protocol PO ACHS 10/15/14 [History] metFORMIN HCL [Glucophage] 1,000 mg PO BID 10/15/14 [History] Carvedilol Phosphate [Coreg Cr] 20 mg PO DAILY 12/16/14 [History] Furosemide [Lasix] 40 mg PO DAILY 12/16/14 [History] Omeprazole [PriLOSEC] 20 mg PO DAILY 12/16/14 [History] Atorvastatin [Lipitor] 20 mg PO DAILY 09/13/16 [History] Exenatide [Byetta] 5 mcg SQ BID 09/13/16 [History] Gabapentin [Neurontin] 300 mg PO TID 10/05/17 [History] Ibuprofen [Motrin] 800 mg PO TID PRN 10/05/17 [History] Potassium Chloride [Klor-Con 8 ER] 8 meq PO DAILY 10/05/17 [History] Tamsulosin [Flomax] 0.4 mg PO DAILY 10/05/17 [History] Melatonin 5 mg PO HS #30 tablet 10/12/17 [Rx] Mirtazapine [Remeron] 15 mg PO HS #30 tab 10/12/17 [Rx] Nicotine Gum (Polacrilex) [Nicorette] 2 mg BUCCAL Q2HR PRN #30 gum 10/12/17 [Rx] Ziprasidone [Geodon] 80 mg PO BID #60 cap 10/12/17 [Rx] Follow up Appointment(s)/Referral(s): Mireya Morrow [Outside] - 12/09/21 11:00 am ([facility] 12/09 11:00 telehealth [facility] 12/10 @ 19:00 telehealth) Rowena Christiansen MD [Primary Care Provider] - 1-2 days Activity/Diet/Wound Care/Special Instructions: Activity and diet as tolerated. Avoid the use of street drugs and alcohol. Take all medications as prescribed. When you are in need of refills on your medications please contact your medical provider and/or outpatient psychiatrist to have this done. Please go to scheduled outpatient appointment for aftercare treatment. If symptoms return or become worse, call the crisis line at and/or go to the nearest emergency room for evaluation
[2021-12-05 12:37] LABS: Glucose,Whole Blood 156 mg/dL (75-99)
[2021-12-05 17:38] LABS: Glucose,Whole Blood 172 mg/dL (75-99)
[2021-12-05 20:10] LABS: Glucose,Whole Blood 163 mg/dL (75-99)
[2021-12-05] MEDS: PRAZOSIN 1 MG CAP PO SCH (20:34)
[2021-12-05] MEDS: MIRTAZAPINE 15 MG TAB PO SCH (20:34)
[2021-12-05] MEDS: lamoTRIgine 25 MG TAB PO SCH (20:34)
[2021-12-05] MEDS: MELATONIN 3 MG TABLET PO SCH (20:35)
[2021-12-05 20:41] VITALS: BP 111/83; PULSE 114
[2021-12-06 08:02] LABS: Glucose,Whole Blood 158 mg/dL (75-99)
[2021-12-06] MEDS: INSULIN DETEMIR (LEVEMIR) 100 UNIT/ML SYR SQ SCH (08:08)
[2021-12-06] MEDS: INSULIN ASPART (NovoLOG) 100 UNIT/ML VIAL SQ SCH ×3 (08:10→17:53)
[2021-12-06] MEDS: PANTOPRAZOLE 40 MG TABLET PO SCH (08:53)
[2021-12-06] MEDS: ATORVASTATIN 20 MG TAB PO SCH (08:53)
[2021-12-06] MEDS: POTASSIUM CHLORIDE ER 10 MEQ TAB.ER.PRT PO SCH (08:53)
[2021-12-06] MEDS: carvediloL 12.5 MG TAB PO SCH ×2 (08:53→17:53)
[2021-12-06] MEDS: metFORMIN 500 MG TAB PO SCH (08:53)
[2021-12-06] MEDS: lisinopriL 5 MG TAB PO SCH (08:54)
[2021-12-06] MEDS: FUROSEMIDE 40 MG TAB PO SCH (08:54)
[2021-12-06] MEDS: GABAPENTIN 300 MG CAP PO SCH ×2 (08:55→16:26)
[2021-12-06] MEDS: risperiDONE 2 MG TAB PO SCH (08:56)
[2021-12-06] MEDS: FARXIGA 10 MG PO SCH (08:57)
[2021-12-06] MEDS: TAMSULOSIN 0.4 MG CAP.ER.24H PO SCH (08:57)
[2021-12-06 12:58] LABS: Glucose,Whole Blood 115 mg/dL (75-99)
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
[2021-12-06 17:45] LABS: Glucose,Whole Blood 176 mg/dL (75-99)
== END 2021-12-06 18:47 | disposition home or self-care (01) | DRG 885 ==
LOC: EC 19:18 → 3MHU 11-30 06:10
PROVIDERS: ADMIT Psychiatry & Neurology Psychiatry; ATTEND Psychiatry & Neurology Psychiatry
DX: F20.9 Schizophrenia, unspecified (principal); R45.851 Suicidal ideations; R45.850 Homicidal ideations; E11.40 Type 2 diabetes mellitus with diabetic neuropathy, unspecified; Z79.4 Long term (current) use of insulin; Z20.822 Contact with and (suspected) exposure to COVID-19; F32.A Depression, unspecified; F43.10 Post-traumatic stress disorder, unspecified; G47.00 Insomnia, unspecified; E78.5 Hyperlipidemia, unspecified; I10 Essential (primary) hypertension; K21.9 Gastro-esophageal reflux disease without esophagitis; I25.10 Atherosclerotic heart disease of native coronary artery without angina pectoris; E66.9 Obesity, unspecified; Z68.33 Body mass index [BMI] 33.0-33.9, adult; N40.0 Benign prostatic hyperplasia without lower urinary tract symptoms; I25.2 Old myocardial infarction; F17.200 Nicotine dependence, unspecified, uncomplicated; Z71.6 Tobacco abuse counseling; Z79.82 Long term (current) use of aspirin; Z79.84 Long term (current) use of oral hypoglycemic drugs; Z79.899 Other long term (current) drug therapy; Z91.51 Personal history of suicidal behavior; Z90.49 Acquired absence of other specified parts of digestive tract; Z87.19 Personal history of other diseases of the digestive system; Z98.890 Other specified postprocedural states; Z88.7 Allergy status to serum and vaccine; Z71.41 Alcohol abuse counseling and surveillance of alcoholic; Z71.51 Drug abuse counseling and surveillance of drug abuser; Z81.8 Family history of other mental and behavioral disorders
CPT/HCPCS: 36415; 80053; 80061; 82075; 83036; 84443; 85025; 87635; 99285

== ENCOUNTER → 2022-11-11 | Outpatient (CLI) | payer OTHER ==
--- NOTE | 2022-11-12 07:44 | MR ---
EXAMINATION TYPE: MR shoulder RT wo con DATE OF EXAM: 11/11/2022 COMPARISON: Right shoulder x-ray October 23, 2022 HISTORY: RT SHOULDER PAIN, FELL ON ICE 10-23-2022 TECHNIQUE: Multiplanar, multisequence imaging of the right shoulder is performed without contrast. FINDINGS: Rotator Cuff: Some increased signal along the course of the supraspinatus and infraspinatus tendons g reatest along the articular bursal surface of the infraspinatus tendon. No full-thickness retracted t ear. Rotator cuff muscle bulk is preserved. Acromioclavicular Joint: Mild narrowing and superior capsular hypertrophy. Mild spurring. Underlying fat plane maintained. Distal acromion morphology unremarkable. Glenohumeral Joint: Small sized joint effusion. Some narrowing is seen. No significant spurring. Incr eased signal anterior inferior aspect of the joint. Loss of fat in the rotator cuff interval. Labrum: The labrum appears grossly intact given limitation of non-arthrogram study. Biceps Tendon: The long head of biceps is in normal location within bicipital groove. Bone marrow signal: No focal abnormal marrow signal is appreciated. Other: No additional significant abnormality is appreciated. IMPRESSION: MRI findings are suggestive of adhesive capsulitis as detailed above. Correlate clinicall y. Some tendinosis of the distal supraspinatus and infraspinatus tendons. No rotator cuff or labral t ear is seen.
== END | disposition home or self-care (01) ==
LOC: RADMRIMAIN 12:13
PROVIDERS: ATTEND Emergency Medicine
DX: S43.401D Unspecified sprain of right shoulder joint, subsequent encounter (principal); S50.01XD Contusion of right elbow, subsequent encounter; S80.01XD Contusion of right knee, subsequent encounter; M67.813 Other specified disorders of tendon, right shoulder

== ENCOUNTER → 2023-03-17 | Outpatient (CLI) | payer BC ==
[2023-03-17 20:36] LABS: Basophils # (A) 0.04 X 10*3/uL (0.00-0.10); Basophils % (A) 0.7 %; Eosinophils % (A) 1.7 %; HCT 44.6 % (39.6-50.0); HGB 15.9 d/dL (12.0-15.0); Lymphocytes # (A) 1.35 X 10*3/uL (0.90-5.00); Lymphocytes % (A) 22.9 %; MCH 30.2 pg (27.0-32.0); MCHC 35.7 d/dL (32.0-37.0); MCV 84.8 FL (80.0-97.0); Mean Platelet Volume 9.6 FL (9.5-12.2); Monocytes # (A) 0.46 X 10*3/uL (0.20-1.00); Monocytes % (A) 7.8 %; NRBC Per 100 WBC 0 X 10*3/uL (0.00-0.01); Neutrophils # (A) 3.89 X 10*3/uL (1.80-7.70); Neutrophils % (A) 65.9 %; Platelet Count 201 X 10*3/uL (140-440); RBC 5.26 X 10*6/uL (4.40-5.60); RDW 13.2 % (11.5-14.5)
== END | disposition home or self-care (01) ==
LOC: LABPAT 14:24
PROVIDERS: ATTEND Orthopaedic Surgery
DX: Z01.812 Encounter for preprocedural laboratory examination (principal); M75.41 Impingement syndrome of right shoulder; I45.10 Unspecified right bundle-branch block; R94.31 Abnormal electrocardiogram [ECG] [EKG]
CPT/HCPCS: 85025; 93005

== ENCOUNTER 2023-04-02 05:42 | Day surgery (SDC) | payer BC, OTHER ==
[2023-03-26 17:06] VITALS: BMI 31.6
--- NOTE | 2023-04-01 14:25 | HP ---
HISTORY AND PHYSICAL DATE OF SCHEDULED SURGERY: 04/02/2023. HISTORY OF PRESENT ILLNESS: Prieto Prescott is a 47-year-old patient seen progressive right shoulder pain. We discussed options regarding treatment. He elected to proceed with right shoulder arthroscopy. Consent regarding the procedure was obtained. PAST MEDICAL HISTORY: Insulin-dependent diabetes, hypertension, hyperlipidemia, and gastroesophageal reflux disease. SURGICAL HISTORY: Noncontributory. DAILY MEDICATIONS: 1. Atorvastatin. 2. Carvedilol. 3. Ibuprofen. 4. Lantus insulin. 5. Omeprazole. 6. Risperidone. ALLERGIES: None. SOCIAL HISTORY: He denies current tobacco use. PHYSICAL EVALUATION OF THE RIGHT SHOULDER: Flexion 70 degrees, abduction is 30 degrees, external rotation is 20 degrees with weakness and pain. Tenderness along the anterior lateral acromion and rotator cuff insertion. Impingement is positive 90. Drop-arm sign is positive. Distal neurovascular exam intact. Right shoulder radiographs revealed acromioclavicular joint osteoarthritis. Right shoulder MRI revealed abnormal signal within the rotator cuff tendon. IMPRESSION: 1. Right shoulder impingement with rotator cuff tear. 2. Right shoulder acromioclavicular joint osteoarthritis. 3. Insulin-dependent diabetes. 4. Hyperlipidemia. 5. Hypertension. PLAN: Right shoulder arthroscopy with subacromial decompression, probable arthroscopic rotator cuff repair, Priscila procedure and debridement. MMODL / IJN: [id number] /
[2023-04-02] MEDS ORDERED: ONDANSETRON 4 MG/2 ML VIAL IVP ONE (06:24)
[2023-04-02] MEDS ORDERED: DEXAMETHASONE SOD PHOSPHATE 4 MG/ML 1 ML VIAL IV ONE (06:24)
[2023-04-02] MEDS ORDERED: LACTATED RINGERS 1,000 ML IV SCH (06:24)
[2023-04-02 06:42] LABS: Glucose,Whole Blood 310 mg/dL (70-110)
[2023-04-02] MEDS ORDERED: INSULIN ASPART (NovoLOG) 100 UNIT/ML VIAL SQ ONE ×2 (06:45→09:58)
[2023-04-02] MEDS ORDERED: HYDROmorphone 0.5 MG/0.5 ML SYRINGE IVP PRN (07:00)
[2023-04-02 07:05] VITALS: TEMP 97.2
[2023-04-02] MEDS ORDERED: fentaNYL (PF) 50 MCG/ML 2 ML AMP IVP ONE (07:10)
[2023-04-02] MEDS ORDERED: MIDAZOLAM 2 MG/2 ML VIAL IVP ONE (07:10)
[2023-04-02] MEDS ORDERED: fentaNYL (PF) 50 MCG/ML 2 ML AMP ONE (07:25)
[2023-04-02] MEDS ORDERED: SUCCINYLCHOLINE CHLORIDE 200 MG/10 ML VIAL IV ONE (07:25)
[2023-04-02] MEDS ORDERED: DEXAMETHASONE SOD PHOSPHATE 4 MG/ML 1 ML VIAL ONE (07:25)
[2023-04-02] MEDS ORDERED: ROCURONIUM 10 MG/ML (5 ML VIAL) IV ONE (07:25)
[2023-04-02] MEDS ORDERED: PROPOFOL 10 MG/ML 20 ML VIAL IV ONE (07:25)
[2023-04-02] MEDS ORDERED: ROPIVACAINE 5 MG/ML 30 ML VIAL ONE (07:25)
[2023-04-02] MEDS ORDERED: LIDOCAINE 2% INJ 20 MG/ML (2 ML VIAL) ONE (07:25)
[2023-04-02] MEDS ORDERED: MIDAZOLAM 2 MG/2 ML VIAL ONE (07:25)
--- NOTE | 2023-04-02 09:13 | P.OP ---
Date of Procedure: 04/02/23 Preoperative Diagnosis: Right shoulder impingement Postoperative Diagnosis: 1. Right shoulder rotator cuff tear 2. Right shoulder impingement 3. Right shoulder acromioclavicular joint osteoarthritis Procedure(s) Performed: 1. Right shoulder arthroscopic rotator cuff repair 2. Right shoulder arthroscopic subacromial decompression 3. Right shoulder arthroscopic Priscila procedure Implants: 1Arthrex 4.75 swivel lock anchor Anesthesia: GETA, regional (Interscalene block) Surgeon: Yovany Sahni Estimated Blood Loss (ml): 11 Pathology: none sent Condition: stable Disposition: PACU Indications for Procedure: 47-year-old patient seen with progressive right shoulder pain. After having treatment options discussed, he elected to proceed with arthroscopy Operative Findings: See description of procedure Description of Procedure: Patient underwent an interscalene block by department of anesthesia. The patient was then taken to the operative suite. The patient underwent a general anesthetic by the department of anesthesia. The patient was placed into a lateral position and secured. There was appropriate padding of the bony prominence. Right shoulder was then prepped and draped in normal sterile orthopedic fashion. We placed the extremity in 10 pounds of longitudinal traction. A posterior incision was now made for a posterior working portal site. The trocar and cannula were inserted into the glenohumeral joint. Arthroscopy was initiated. Spinal needle was now inserted anteriorly, to ascertain the anterior working portal site. An incision was now made in that area, a trocar was inserted followed by a probe. The biceps tendon was absent. There was some superficial fraying of the superior labrum. There was no significant chondromalacia involving the glenohumeral joint. I debrided out the superficial fraying of the labrum getting down to stable labral tissue. Residual labrum was probed and was found to be stable. Instruments were now removed from the glenohumeral joint. Utilizing the posterior working portal site, the trocar and cannula were inserted into the subacromial space. Arthroscopy initiated. I made an incision 2 fingerbreadths lateral to the acromion. I introduced my trocar followed by my ArthroCare ablator. I now began ablating thick subacromial bursal tissue, which exposed the undersurface of the anterior acromion. There was diminished subacromial space. There was a very prominent anterior acromion. A motorized bur was introduced and a subacromial decompression was performed. I also excised some osteophytes off the inferior aspect of the distal clavicle. The AC joint was visualized and noted to be fairly arthritic. The motorized bur was introduced in the anterior portal site and a Priscila procedure was performed without difficulty, decompressing the AC joint nicely. I turned my attention to the rotator cuff. There was significant partial tearing along the distal supraspinatus tendon. Upon probing the area noted a full-thickness perforation. I now debrided the margins getting down to stable tendon tissue. The defect/tear measuring approximately 11.5 cm and was freely mobile over the footprint. I abraded the foot with a motorized bur. I passed 2 everted mattress sutures through good bites of rotator cuff tendon. I placed a hole the footprint area for insertion of an anchor. All 4 limbs of suture were passed through the eyelet of an Arthrex 4.75 swivel lock anchor. I placed the eyelet into our pre-punch hole. I held in position while an political science research assistant tensioning the sutures and deployed anchor with good fixation. All residual suture limbs were now clipped. We had good compression of the tendon along the entire footprint. Instruments now removed from the portal sites. All portal sites were approximated with nylon suture. Sterile dressings were applied followed by a shoulder sling. The patient was awakened, transferred to a bed, and taken to recovery in stable condition.
[2023-04-02 09:40] LABS: Glucose,Whole Blood 308 mg/dL (70-110)
[2023-04-02 09:41] VITALS: RESP 16
[2023-04-02] MEDS ORDERED: LACTATED RINGERS 1,000 ML IV ONE (10:00)
[2023-04-02 11:00] VITALS: BP 150/94; PULSE 85
--- NOTE | 2023-04-02 11:41 | P.ANPRN ---
Procedure Note - Anesthesia - Nerve Block Performed Right Interscalene Single Time Out Performed: Yes Date of Procedure: 04/02/23 Location of Patient: PreOp Indication: Acute Post-Operative Pain, Dx/Pain Location (right shoulder), Requested by Surgeon Specifically requested for management of pain by DrLovely: Yovany Sahni Sedation Type: Sedate with meaningful contact maintained Preparation: Sterile Prep Position: Supine Catheter: None Needle Types: Pajunk Needle Gauge: 21 Ultrasound used to visualize needle placement: Yes Ultrasound used to observe medication spread: Yes Injectate: 0.5% Ropivacaine (see comment for volume) (30 mL +4 mg of Decadron) Blood Aspirated: No Pain Paresthesia on Injection Noted: No Resistance on Injection: Normal Image Stored and Saved: Yes Events: Uneventful and Well Tolerated
== END 2023-04-02 11:00 | disposition home or self-care (01) ==
LOC: OR 05:42
PROVIDERS: ATTEND Orthopaedic Surgery
DX: M75.101 Unspecified rotator cuff tear or rupture of right shoulder, not specified as traumatic (principal); M75.41 Impingement syndrome of right shoulder; M19.011 Primary osteoarthritis, right shoulder; I10 Essential (primary) hypertension; E78.5 Hyperlipidemia, unspecified; E11.9 Type 2 diabetes mellitus without complications; K21.9 Gastro-esophageal reflux disease without esophagitis; Z79.899 Other long term (current) drug therapy
CPT/HCPCS: 29827; 29826; 64415; C1713 ×2; J2250; J0330; J1100; J0690; J2405; J3010; J2795; J2704; J2001

== ENCOUNTER → 2023-08-17 | Day surgery (SDC) | payer BC, OTHER ==
--- NOTE | 2023-08-16 22:01 | HP ---
HISTORY AND PHYSICAL DATE OF SURGERY: 08/17/2023. HISTORY OF PRESENT ILLNESS: Prieto Prescott is a 47-year-old gentleman seen with right shoulder adhesive capsulitis with history of previous arthroscopic rotator cuff repair. After discussing options regarding treatment, he elected to proceed with manipulation under anesthesia, right shoulder steroid injection. Consent obtained. PAST MEDICAL HISTORY: Hyperlipidemia, hypertension, insulin-dependent diabetes, gastroesophageal reflux disease. PAST SURGICAL HISTORY: Shoulder arthroscopy. DAILY MEDICATIONS: 1. Atorvastatin. 2. Carvedilol. 3. Lantus insulin. 4. Novolin insulin. 5. Omeprazole. ALLERGIES: None. SOCIAL HISTORY: Denies tobacco use. PHYSICAL EVALUATION OF THE RIGHT SHOULDER: He has a well-healed arthroscopic portal sites. Flexion 70 degrees, abduction 70 degrees. External rotation 0 degrees with good strength. IMAGING STUDIES: X-rays of right shoulder revealed conversion to a flat anterior acromion. IMPRESSION: 1. Right shoulder adhesive capsulitis. 2. History of right shoulder arthroscopic rotator cuff repair. 3. Insulin-dependent diabetes. 4. Hypertension. 5. Hyperlipidemia. PLAN: Right shoulder manipulation under anesthesia with steroid injection. MMODL / IJN: [id number] /
[~2023-08-17] MED LIST: BUPIVACAIN-EPI 0.25%-1:200,000 30 ML VIAL INTRAARTIC ONE; DEXAMETHASONE SOD PHOSPHATE 4 MG/ML 1 ML VIAL IV ONE; INSULIN ASPART (NovoLOG) 100 UNIT/ML VIAL SQ ONE; KETAMINE HCL IN 0.9 % NACL 50 MG/5 ML SYRINGE ONE; KETOROLAC 15 MG/ML 1 ML VIAL ONE; LACTATED RINGERS 1,000 ML IV SCH; LIDOCAINE 1% (10MG/ML) FOR IV START INTRADERMA PRN; MIDAZOLAM 2 MG/2 ML VIAL IV PRN; ONDANSETRON 4 MG/2 ML VIAL IVP ONE; PROPOFOL 10 MG/ML 20 ML VIAL IV ONE; fentaNYL (PF) 50 MCG/ML 2 ML AMP IV PRN; methylPREDNISolone ACETATE 80 MG/ML 1 ML VIAL INTRAARTIC ONE
[2023-08-17 08:53] VITALS: TEMP 98.4
[2023-08-17 08:54] LABS: Glucose,Whole Blood 421 mg/dL (70-110)
[2023-08-17 09:17] LABS: Glucose,Whole Blood 407 mg/dL (70-110)
--- NOTE | 2023-08-17 09:35 | P.OP ---
Date of Procedure: 08/17/23 Preoperative Diagnosis: Right shoulder adhesive capsulitis Postoperative Diagnosis: Right shoulder adhesive capsulitis Procedure(s) Performed: Manipulation under anesthesia right shoulder with steroid injection Anesthesia: MAC, local Surgeon: Yovany Sahni Estimated Blood Loss (ml): 0 Pathology: none sent Condition: stable Disposition: PACU Indications for Procedure: 47-year-old patient was seen with persistent right shoulder adhesive capsulitis. I discussed treatment options to include made position of anesthesia right shoulder steroid injection. Patient was agreeable. Consent was obtained. Operative Findings: See description of procedure Description of Procedure: Patient was taken to a monitored anesthesia care. He underwent IV sedation by the department anesthesia. Once sufficient anesthesia was obtained I performed a manipulation of the right shoulder achieving near full range of motion with audible tearing of the adhesions. The anterior aspect of her shoulder was prepped and draped in normal sterile orthopedic fashion. I now injected solution 1 mL Depo-Medrol and 2 ml pain Marcaine intra-articular under sterile technique. I applied a sterile Band-Aid. I again took the shoulder through range of motion. The patient was now awakened having tolerated procedure well.
[2023-08-17] MEDS: HYDROmorphone 0.5 MG/0.5 ML SYRINGE IVP PRN ×4 (09:45→10:07)
[2023-08-17 10:45] LABS: Glucose,Whole Blood 364 mg/dL (70-110)
[2023-08-17 11:28] VITALS: BP 137/90; PULSE 101; RESP 14
== END | disposition home or self-care (01) ==
LOC: OR 08:13
PROVIDERS: ATTEND Orthopaedic Surgery
DX: M75.01 Adhesive capsulitis of right shoulder (principal); E78.5 Hyperlipidemia, unspecified; I25.2 Old myocardial infarction; F32.A Depression, unspecified; F43.10 Post-traumatic stress disorder, unspecified; E11.42 Type 2 diabetes mellitus with diabetic polyneuropathy; F20.9 Schizophrenia, unspecified; I10 Essential (primary) hypertension; K21.9 Gastro-esophageal reflux disease without esophagitis; Z79.4 Long term (current) use of insulin; Z79.899 Other long term (current) drug therapy; Z79.84 Long term (current) use of oral hypoglycemic drugs; Z87.891 Personal history of nicotine dependence
CPT/HCPCS: 23700; J1040; J1170

== ENCOUNTER → 2023-09-28 | Outpatient (CLI) | payer BC ==
--- NOTE | 2023-09-30 09:24 | MR ---
EXAMINATION TYPE: MR shoulder LT wo con DATE OF EXAM: 09/28/2023 6:49 PM COMPARISON: NONE HISTORY: Left shoulder pain x 6 months TECHNIQUE: Multiplanar multispin echo imaging of the shoulder was performed. FINDINGS: Rotator cuff : There is heterogeneity and thickening of the supraspinatus tendon compatible chronic t endinopathy. Small partial undersurface tear noted just distal to the critical zone. No full-thicknes s tear identified. Remaining constituents of the rotator cuff are intact. Bursa: No bursal effusion or thickening is seen. Musculature: There is no muscular tear, contusion, or atrophy. Acromioclavicular joint : Lateral downsloping of the chromium resulting in mild impingement. Osseous structures : There are no fractures or regions of abnormal bone marrow signal intensity. Long biceps tendon : The biceps tendon is normally situated within the bicipital groove. No complete or partial biceps tendon tear is present. Glenohumeral Joint fluid : There is no glenohumeral joint effusion. Cartilage and Bone : No focal hyaline cartilage defects are noted. No Hill-Sachs, reverse Hill-Sachs, or bony Bankart lesions are seen. Labrum : There are no SLAP or soft tissue Bankart lesions. No paralabral cysts are seen. OTHER FINDINGS : none IMPRESSION: 1. There is heterogeneity and thickening of the supraspinatus tendon compatible chronic tendinopathy. Small partial undersurface tear noted just distal to the critical zone. No full-thickness tear ident ified.
== END | disposition home or self-care (01) ==
LOC: RADMRIMAIN 17:16
PROVIDERS: ATTEND Orthopaedic Surgery
DX: M67.814 Other specified disorders of tendon, left shoulder (principal); M75.112 Incomplete rotator cuff tear or rupture of left shoulder, not specified as traumatic